=== PATIENT | male | born 1945 | race Caucasian/White ===

== ENCOUNTER 2021-11-05 20:31 | Inpatient (IN) | payer MEDICARE, SELFPAY ==
--- NOTE | ~2021-11-05 | US_ITS ---
EXAMINATION: US VENOUS ULTRASOUND WITH DOPPLER LOWER EXTREMITY, BILATERAL CLINICAL INFORMATION: Swollen feet COMPARISON: None TECHNIQUE: Ultrasound of the deep veins is performed from the hip to the calf with compression sonography and color and pulse Doppler assessment. Spectral analysis with color-flow imaging is performed. FINDINGS: RIGHT: There is normal venous compression and respiratory variation and augmented flow. The visualized common femoral vein, superficial femoral vein, profunda femoral vein, popliteal vein, and the trifurcation region shows no evidence of deep venous thrombosis. There is no significant popliteal fossa cyst. There is moderate calf edema. LEFT: There is normal venous compression and respiratory variation and augmented flow. The visualized common femoral vein, superficial femoral vein, profunda femoral vein, popliteal vein, and the trifurcation region shows no evidence of deep venous thrombosis. There is no significant popliteal fossa cyst. There is moderate calf edema. If the patient's symptoms persist, followup ultrasound in 5 days 7 days might be of value to exclude proximal propagation from a non-visualized calf vein. US/US venous duplex LE BI IMPRESSION: No DVT demonstrated in the bilateral lower extremity. Moderate bilateral calf edema.
--- NOTE | ~2021-11-05 | CT_ITS ---
EXAMINATION: CT HEAD WITHOUT CONTRAST CLINICAL INFORMATION: Change in mental status. COMPARISON: None TECHNIQUE: Contiguous axial imaging was performed from the skull base to vertex without intravenous administration of contrast. This CT examination was performed using dose optimization techniques as appropriate, variously including the following: *Automated exposure control *Adjustment of mA and/or kV according to patient size (this includes techniques or standardized protocols for targeted exams where dose is matched to indication/reason for exam; i.e. extremities or head) *Use of iterative reconstruction technique DLP: 727 mGy-cm FINDINGS: There is what may represent a 4.7 x 6.2 x 3.6 cm arachnoid cyst at the high left frontal vertex remodeling the overlying frontal calvarium which is thinned and attenuated. The underlying brain parenchyma is mildly distorted as well. There is encephalomalacia in the right parietal lobe along the mid convexity from a chronic-appearing infarct with ex vacuo dilatation of the body of the right lateral ventricle. Generalized parenchymal volume loss evident. There is no evidence of acute intracranial hemorrhage. No abnormal midline shift is seen. No imaging findings of hydrocephalus. The osseous structures and soft tissues are normal. The mastoid air cells and visualized portions of the paranasal sinuses are well aerated. CT/CT head/brain wo con IMPRESSION: Suspected 4.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 No midline shift of structures. 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 Generalized parenchymal volume loss and mild chronic white matter microangiopathy. No acute intracranial hemorrhage. If there is concern for a focal acute ischemic process, a follow-up MRI of the brain could be considered for further evaluation.
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
[2021-11-05] MEDS: Lithium Carbonate 300 MG TABLET 150 MG PO (22:01)
[2021-11-05] MEDS: Acetaminophen 325 MG TABLET 650 MG PO (22:01)
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
[2021-11-06 06:15] VITALS: BMI 22.4
[2021-11-06 07:05] VITALS: BP 135/73; PULSE 84; RESP 17; TEMP 36.7; O2SAT 99
[2021-11-06] MEDS: Aspirin 81 MG TAB.CHEW PO (08:50)
[2021-11-06] MEDS: Thiamine HCL 100 MG TABLET PO (08:50)
[2021-11-06] MEDS: Tamsulosin HCL 0.4 MG CAPSULE PO (08:50)
[2021-11-06] MEDS: Lithium Carbonate 300 MG CAPSULE PO (08:50)
[2021-11-06] MEDS: Atorvastatin Calcium 40 MG TABLET PO (08:51)
--- NOTE | 2021-11-06 10:12 | P.CONHOSP_ITS ---
History of Present Illness Data of Consult Service Date: 11/06/21 Primary Care Provider: Carlos Piña DO, MD HPI 76 year old male with Bipolar disorder, CKD, history of CVA, HTN, history of right renal mass discharged from [facility] 11/05/21 after admission for acute Psychosis and subsequently transfered to [facility]. No acute medical complaint at this time. Discharge Diagnosis at [facility] as follow: Bipolar disorder, current episode hypomanic (F31.0) Chronic kidney disease (N18.9) Contact dermatitis (L25.9) History of CVA in adulthood (Z86.73) Hypertension, uncontrolled (I10) Right renal mass (N28.89) Discharge Medications at [facility] on 11/05/21 Acetaminophen (acetaminophen 325 mg oral tablet) 650 Milligram By Mouth Every 4 hours as needed Temperature Greater than 100.5 Pain , Mild Aspirin (aspirin 81 mg oral delayed release tablet) 81 Milligram By Mouth Daily Calamine Topical 1 applicator Topically 4 times a day as needed Itch Docusate-Senna (Docusate/Senna Tablet) 1 tab(s) By Mouth 2 times a day as needed Constipation [place] (lithium 300 mg oral tablet) 1 tab(s) 300 Milligram By Mouth Daily [place] (lithium 150 mg oral capsule) 150 Milligram By Mouth Daily at bedtime Multivitamin With Minerals (Multivit Therapeutic/Minerals Tablet) 1 tab(s) By Mouth Daily Tamsulosin (Flomax 0.4 mg oral capsule) 0.4 Milligram By Mouth Daily Dispense: 30 capsule Thiamine (thiamine 100 mg oral tablet) 100 Milligram 1 tablet By Mouth Daily No chest pain, no SOB, no WATKINS Review of Systems Review of Systems: Gen: no fever Resp: no sob, no cough CV: no chest, no WATKINS, no leg edema GI: No n/v, no abd pain Neuro: No confusion Psych: trouble foccusing Yes all other systems are reviewed and are negative [facility] Medical History (Updated 11/06/21 @ 10:53 by Alex Galarza MD) Bipolar 1 disorder CKD (chronic kidney disease) Dementia with behavioral disturbance History of CVA (cerebrovascular accident) Right renal mass Social History Household Members: Spouse Housing: House Do you presently have visiting nurse or other home services: No Unable to assess alcohol history related to: Unable to respond Patient Tobacco Use Status: Never used Tobacco Use of substances other than those prescribed or required for medical reasons: Unable to respond Substance Use Type: Marijuana Substance Use Frequency: Occasionally Last Used Substance: Unknown Currently Displaying Signs/Symptoms of Drug Intoxication Withdrawal: No Any prior treatment program specific to substance use: No Have you been hit, kicked, punched, or otherwise hurt by someone within the past year? If so, by whom?: No Do you feel safe in your current relationship?: Yes Is there a partner from a previous relationship who is making you feel unsafe now?: No Are you made to feel afraid or neglected: No Advance Directives: No Do you have thoughts of harming others: None Do you have a plan to hurt others: No Plan Recently lost weight without trying: No How much weight loss: Not applicable Eating poorly because of decreased appetite: No Nutrition screen score: 0 Nutrition Risks: No Nutritional Risk Meds Allergies Allergy/AdvReac Type Severity Reaction Status Date / Time No Known Allergies Allergy Verified 11/05/21 21:04 Active Medications: Current Medications Acetaminophen (Acetaminophen 325 Mg Tablet) 650 mg PO Q6H PRN PRN Reason: Headache/Pain Mild Scale (1-3) Last Admin: 11/05/21 22:01 Dose: 650 mg Al Hydroxide/Mg Hydroxide (Magnesium Hydrox/Alum Hydrox 30 Ml Oral.Susp) 30 ml PO Q6H PRN PRN Reason: Heartburn/Nausea Aspirin (Aspirin 81 Mg Tab.Chew) 81 mg PO DAILY [facility] Last Admin: 11/06/21 08:50 Dose: 81 mg Atorvastatin Calcium (Atorvastatin Calcium 40 Mg Tablet) 40 mg PO DAILY [facility] Last Admin: 11/06/21 08:51 Dose: 40 mg Calamine (Calamine/Zinc Oxide Lotion 177 Ml Bottle) 1 appl TOPICAL QID PRN PRN Reason: poison kailee Guaifenesin/Dextromethorphan (Guaifenesin Dm 100/10/5 Ml 5 Ml Syrup) 5 ml PO Q4H PRN PRN Reason: cough, congestion Hydroxyzine HCl (Hydroxyzine Hcl 25 Mg Tablet) 25 mg PO BEDTIME PRN PRN Reason: Anxiety [place] Carbonate ([place] Carbonate 300 Mg Capsule) 300 mg PO DAILY [facility] Last Admin: 11/06/21 08:50 Dose: 300 mg [place] Carbonate ([place] Carbonate 300 Mg Tablet) 150 mg PO BEDTIME [facility] Last Admin: 11/05/21 22:01 Dose: 150 mg Magnesium Hydroxide (Milk Of Magnesia 30 Ml Oral.Susp) 30 ml PO DAILY PRN PRN Reason: Constipation Melatonin (Melatonin 3 Mg Tablet) 3 mg PO BEDTIME PRN PRN Reason: insomnia Olanzapine (Olanzapine 5 Mg Tablet) 5 mg PO BID PRN PRN Reason: agitation, anxiety Polyethylene Glycol (Polyethylene Glycol 3350 17 Gm Powd.Pack) 17 gm PO DAILY PRN PRN Reason: constipation Senna (Sennosides 8.6 Mg Tablet) 8.6 mg PO BID PRN PRN Reason: constipation Simethicone (Simethicone 80 Mg Tab.Chew) 80 mg PO TID PRN PRN Reason: gas Tamsulosin HCl (Tamsulosin Hcl 0.4 Mg Capsule) 0.4 mg PO DAILY [facility] Last Admin: 11/06/21 08:50 Dose: 0.4 mg Thiamine HCl (Thiamine Hcl 100 Mg Tablet) 100 mg PO DAILY [facility] Last Admin: 11/06/21 08:50 Dose: 100 mg Trazodone HCl (Trazodone Hcl 50 Mg Tablet) 50 mg PO BEDTIME PRN PRN Reason: Insomnia Physical Exam Vital Signs and Narrative: Vital Signs: Last Vital Signs Temp 98.1 F 11/06/21 07:05 Pulse 84 11/06/21 07:05 Resp 17 11/06/21 07:05 BP 135/73 11/06/21 07:05 Pulse Ox 99 11/06/21 07:05 O2 Del Method 11/06/21 07:05 BMI result Body Mass Index 22.4 Const: Other: Constitutional: Alert, in no distress Mental Status: Oriented to person, place and time. Eyes: Pupils are equal, round and reactive to light. Ear, Nose and Throat: Oropharynx clear, mucous membranes moist. Ears and nose without eformities. Trachea midline. Respiratory: Clear to auscultation. No wheezing, rales or rhonchi. Cardiovascular: S1 S2 regular. No murmurs, rubs or gallops. Gastrointestinal: Abdomen soft, non-tender, non-distended. Normal bowel sounds.? Neurologic: Cranial nerves II-XII grossly intact. No focal neurological deficits. Moves all extremities spontaneously.? Skin: No rashes or lesions.? Musculoskeletal: No cyanosis or clubbing. Psychiatric: thought was a bit desorganized Assessment and Plan (1) Dementia with behavioral disturbance: (2) Bipolar 1 disorder: Plan Patient admitted for acute Psychosis, presently with no acute medical issues. Please continue ongoing Psychiatric, should ECT be indicated, he will need no additioanl cardiopulmonary testing but suggest ECG before ECT
[2021-11-06 10:20] LABS: Estimated Average Glucose 108 mg/dL; Hemoglobin A1c % 5.4 %
[2021-11-06 10:29] LABS: Cholesterol 163 mg/dL; HDL Cholesterol 38 mg/dL; LDL Cholesterol Calculated 103 mg/dl; Magnesium 2.4 mg/dL (1.6-2.6); Triglycerides 111 mg/dL
[2021-11-06 10:49] LABS: Free T4 (Free Thyroxine) 0.98 ng/dL (0.71-1.85); Thyroid Stimulating Hormone 0.93 uIU/mL (0.32-4.0)
[2021-11-06 11:03] LABS: Folate 8.9 ng/mL (> or = 4.0); Vitamin B12 299 pg/mL (200-900)
--- NOTE | 2021-11-06 12:48 | P.PNPSI_ITS ---
Subjective Subjective Date of Service: 11/06/21 Reason For Visit: Bipolar I D/O Current or most recent episode hypom Subjective Notes: Conditional Voluntary Interim History: The nursing staff reported that the patient has been compliant with treatment, he looks confused and delusional at times but easily redirectable. On interview the patient was aware that he was in the hospital and he asked about discharge planning. I explained that we need to get collateral information and continue with treatment. He is aware that he will have blood work next Tuesday. Mental Status Exam Mental Status Exam Patient Appearance: Appropriate Patient Orientation: Person, Place and Situation Level of Consciousness: Restless Patient Behavior: Guarded and Passive Mood Description: Withdrawn Affect Description: Withdrawn Patient Cognition Impaired: Yes Ability to Follow Directions: Fair Speech Pattern: Clear Hallucinations: None and Auditory Delusions: Paranoid Ideation and Grandiose Thought Process: Illogical and Distracted Thought Content: positive for [place] Judgement: Poor Diagnostics Vital Signs (24Hr): Vital Signs - 24 hr 11/06/21 07:05 Temperature 98.1 F Pulse Rate 84 Respiratory Rate 17 Blood Pressure 135/73 Pulse Oximetry 99 Oxygen Delivery Method Room Air BMI result Body Mass Index 22.4 Labs Labs: Laboratory Results - last 48 hr 11/06/21 11/06/21 11/06/21 09:49 09:49 09:49 Estimat Average Glucose 108 Hemoglobin A1c % 5.4 Magnesium 2.4 Triglycerides 111 Cholesterol 163 LDL Cholesterol, Calc 103 HDL Cholesterol 38 Vitamin B12 299 Folate 8.9 TSH 0.93 Free T4 0.98 Medications Medications Current Medications Acetaminophen (Acetaminophen 325 Mg Tablet) 650 mg PO Q6H PRN PRN Reason: Headache/Pain Mild Scale (1-3) Last Admin: 11/05/21 22:01 Dose: 650 mg Al Hydroxide/Mg Hydroxide (Magnesium Hydrox/Alum Hydrox 30 Ml Oral.Susp) 30 ml PO Q6H PRN PRN Reason: Heartburn/Nausea Aspirin (Aspirin 81 Mg Tab.Chew) 81 mg PO DAILY [facility] Last Admin: 11/06/21 08:50 Dose: 81 mg Atorvastatin Calcium (Atorvastatin Calcium 40 Mg Tablet) 40 mg PO DAILY [facility] Last Admin: 11/06/21 08:51 Dose: 40 mg Calamine (Calamine/Zinc Oxide Lotion 177 Ml Bottle) 1 appl TOPICAL QID PRN PRN Reason: poison kailee Guaifenesin/Dextromethorphan (Guaifenesin Dm 100/10/5 Ml 5 Ml Syrup) 5 ml PO Q4H PRN PRN Reason: cough, congestion Hydroxyzine HCl (Hydroxyzine Hcl 25 Mg Tablet) 25 mg PO BEDTIME PRN PRN Reason: Anxiety [place] Carbonate ([place] Carbonate 300 Mg Capsule) 300 mg PO DAILY [facility] Last Admin: 11/06/21 08:50 Dose: 300 mg [place] Carbonate ([place] Carbonate 300 Mg Tablet) 150 mg PO BEDTIME [facility] Last Admin: 11/05/21 22:01 Dose: 150 mg Magnesium Hydroxide (Milk Of Magnesia 30 Ml Oral.Susp) 30 ml PO DAILY PRN PRN Reason: Constipation Melatonin (Melatonin 3 Mg Tablet) 3 mg PO BEDTIME PRN PRN Reason: insomnia Olanzapine (Olanzapine 5 Mg Tablet) 5 mg PO BID PRN PRN Reason: agitation, anxiety Polyethylene Glycol (Polyethylene Glycol 3350 17 Gm Powd.Pack) 17 gm PO DAILY PRN PRN Reason: constipation Senna (Sennosides 8.6 Mg Tablet) 8.6 mg PO BID PRN PRN Reason: constipation Simethicone (Simethicone 80 Mg Tab.Chew) 80 mg PO TID PRN PRN Reason: gas Tamsulosin HCl (Tamsulosin Hcl 0.4 Mg Capsule) 0.4 mg PO DAILY [facility] Last Admin: 11/06/21 08:50 Dose: 0.4 mg Thiamine HCl (Thiamine Hcl 100 Mg Tablet) 100 mg PO DAILY [facility] Last Admin: 11/06/21 08:50 Dose: 100 mg Trazodone HCl (Trazodone Hcl 50 Mg Tablet) 50 mg PO BEDTIME PRN PRN Reason: Insomnia Allergies Allergies Allergy/AdvReac Type Severity Reaction Status Date / Time No Known Allergies Allergy Verified 11/05/21 21:04 Assessment & Plan Assessment & Plan (1) Dementia with behavioral disturbance: Code(s): F03.91 - Unspecified dementia with behavioral disturbance (2) Bipolar 1 disorder: Code(s): F31.9 - Bipolar disorder, unspecified Plan Patient admitted for acute Psychosis, presently with no acute medical issues. Please continue ongoing Psychiatric, should ECT be indicated, he will need no additioanl cardiopulmonary testing but suggest ECG before ECT Plan 1. Gather collateral information. In a 2. Continue with current treatment. 3. For Tuesday morning lithium level basic metabolic panel CBC, TSH another regular blood work. 4. Start a low dose of Zyprexa 2.5 mg p.o. q.h.s. to target mood lability I spent __30____ minutes with the patient and/or on the patient floor today, greater than?50% of which was spent counseling/coordinating care. Reason for contiued inpatient stay Substantial Risk for: inability to function, rapid decompensation and med/psych decompensation
[2021-11-06 18:00] VITALS: BP 120/58; PULSE 85; RESP 20; TEMP 36.6; O2SAT 98
[2021-11-06] MEDS: Lithium Carbonate 300 MG TABLET 150 MG PO (20:36)
[2021-11-06] MEDS: OLANZapine 2.5 MG TABLET PO (20:36)
[2021-11-06] MEDS: traZODone HCL 50 MG TABLET PO (23:05)
[2021-11-07] MEDS: traZODone HCL 50 MG TABLET PO ×2 (01:03→20:21)
[2021-11-07 07:05] VITALS: BP 134/75; PULSE 83; RESP 18; TEMP 36.2; O2SAT 98
[2021-11-07] MEDS: Lithium Carbonate 300 MG CAPSULE PO (09:32)
[2021-11-07] MEDS: Thiamine HCL 100 MG TABLET PO (09:32)
[2021-11-07] MEDS: Atorvastatin Calcium 40 MG TABLET PO (09:32)
[2021-11-07] MEDS: Tamsulosin HCL 0.4 MG CAPSULE PO (09:32)
[2021-11-07] MEDS: Aspirin 81 MG TAB.CHEW PO (09:32)
[2021-11-07] MEDS: OLANZapine 5 MG TABLET PO (16:51)
--- NOTE | 2021-11-07 17:33 | HO.PSYCHPN ---
Subjective Subjective Date of Service: 11/07/21 Reason For Visit: Bipolar I D/O Current or most recent episode hypom Interim History: as per staff patient has not been sleeping it disinhibited and sexually preoccupied. With marketing writer presents is friendly, but illogical. Was aware he was in hospital and the father's Day was coming around soon. However believe that it had already passed and then had difficulty naming the hospital he was in. Reports he is here because his is worried about him but he had no idea why she would be concern. Reported feeling safe on the unit. Denied any sleep issues. Denied depression. No evidence of SI or HI. No overt psychosis noted. Regarding medications reports being back on lithium and feels this is positive. Medication Compliance: Yes Side effects from medications: No Attending Groups: Intermittent Review of Systems Acute medical concerns: No Review of Systems Review of Systems Unremarkable Mental Status Exam Mental Status Exam Narrative: hospital clothing. For self-care. Pressured speech. Some difficulty with memory and orientation. Does appear elated. No SI or HI noted. Seems less paranoid today. Does appear to have some internal preoccupation. Insight and judgment limited Diagnostics Vital Signs (24Hr): Vital Signs - 24 hr 11/06/21 18:00 11/07/21 07:05 Temperature 98 F 97.2 F Pulse Rate 85 83 Respiratory Rate 20 18 Blood Pressure 120/58 L 134/75 Pulse Oximetry 98 98 Oxygen Delivery Method Room Air Room Air BMI result Body Mass Index 22.4 Labs Labs: Laboratory Results - last 48 hr 11/06/21 11/06/21 11/06/21 09:49 09:49 09:49 Estimat Average Glucose 108 Hemoglobin A1c % 5.4 Magnesium 2.4 Triglycerides 111 Cholesterol 163 LDL Cholesterol, Calc 103 HDL Cholesterol 38 Vitamin B12 299 Folate 8.9 TSH 0.93 Free T4 0.98 Medications Medications Current Medications Acetaminophen (Acetaminophen 325 Mg Tablet) 650 mg PO Q6H PRN PRN Reason: Headache/Pain Mild Scale (1-3) Last Admin: 11/05/21 22:01 Dose: 650 mg Al Hydroxide/Mg Hydroxide (Magnesium Hydrox/Alum Hydrox 30 Ml Oral.Susp) 30 ml PO Q6H PRN PRN Reason: Heartburn/Nausea Aspirin (Aspirin 81 Mg Tab.Chew) 81 mg PO DAILY [facility] Last Admin: 11/07/21 09:32 Dose: 81 mg Atorvastatin Calcium (Atorvastatin Calcium 40 Mg Tablet) 40 mg PO DAILY [facility] Last Admin: 11/07/21 09:32 Dose: 40 mg Calamine (Calamine/Zinc Oxide Lotion 177 Ml Bottle) 1 appl TOPICAL QID PRN PRN Reason: poison kailee Guaifenesin/Dextromethorphan (Guaifenesin Dm 100/10/5 Ml 5 Ml Syrup) 5 ml PO Q4H PRN PRN Reason: cough, congestion Hydroxyzine HCl (Hydroxyzine Hcl 25 Mg Tablet) 25 mg PO BEDTIME PRN PRN Reason: Anxiety Grenelefe Carbonate (Grenelefe Carbonate 300 Mg Capsule) 300 mg PO DAILY [facility] Last Admin: 11/07/21 09:32 Dose: 300 mg Grenelefe Carbonate (Grenelefe Carbonate 300 Mg Tablet) 150 mg PO BEDTIME [facility] Last Admin: 11/06/21 20:36 Dose: 150 mg Magnesium Hydroxide (Milk Of Magnesia 30 Ml Oral.Susp) 30 ml PO DAILY PRN PRN Reason: Constipation Melatonin (Melatonin 3 Mg Tablet) 3 mg PO BEDTIME PRN PRN Reason: insomnia Olanzapine (Olanzapine 5 Mg Tablet) 5 mg PO BID PRN PRN Reason: agitation, anxiety Last Admin: 11/07/21 16:51 Dose: 5 mg Olanzapine (Olanzapine 2.5 Mg Tablet) 2.5 mg PO BEDTIME [facility] Last Admin: 11/06/21 20:36 Dose: 2.5 mg Polyethylene Glycol (Polyethylene Glycol 3350 17 Gm Powd.Pack) 17 gm PO DAILY PRN PRN Reason: constipation Senna (Sennosides 8.6 Mg Tablet) 8.6 mg PO BID PRN PRN Reason: constipation Simethicone (Simethicone 80 Mg Tab.Chew) 80 mg PO TID PRN PRN Reason: gas Tamsulosin HCl (Tamsulosin Hcl 0.4 Mg Capsule) 0.4 mg PO DAILY [facility] Last Admin: 11/07/21 09:32 Dose: 0.4 mg Thiamine HCl (Thiamine Hcl 100 Mg Tablet) 100 mg PO DAILY [facility] Last Admin: 11/07/21 09:32 Dose: 100 mg Trazodone HCl (Trazodone Hcl 50 Mg Tablet) 50 mg PO BEDTIME PRN PRN Reason: Insomnia Last Admin: 11/07/21 01:03 Dose: 50 mg Allergies Allergies Allergy/AdvReac Type Severity Reaction Status Date / Time No Known Allergies Allergy Verified 11/05/21 21:04 Assessment & Plan Assessment & Plan (1) Dementia with behavioral disturbance: Code(s): F03.91 - Unspecified dementia with behavioral disturbance (2) Bipolar 1 disorder: Code(s): F31.9 - Bipolar disorder, unspecified Plan Patient admitted for acute Psychosis, presently with no acute medical issues. Please continue ongoing Psychiatric, should ECT be indicated, he will need no additioanl cardiopulmonary testing but suggest ECG before ECT Plan 1. Gather collateral information. In a 2. Continue with current treatment. 3. For Tuesday morning lithium level basic metabolic panel CBC, TSH another regular blood work. 4. Start a low dose of Zyprexa 2.5 mg p.o. q.h.s. to target mood lability 11/07/2021: No changes to team's primary treatment plan I spent minutes with the patient and/or on the patient floor today, greater than?50% of which was spent counseling/coordinating care. Reason for contiued inpatient stay Substantial Risk for: inability to function
[2021-11-07 18:00] VITALS: BP 132/73; PULSE 84; RESP 20; TEMP 36.8; O2SAT 99
[2021-11-07] MEDS: OLANZapine 2.5 MG TABLET PO (20:20)
[2021-11-07] MEDS: Lithium Carbonate 300 MG TABLET 150 MG PO (20:21)
[2021-11-07] MEDS: Acetaminophen 325 MG TABLET 650 MG PO (22:06)
[2021-11-07] MEDS: Melatonin 3 MG TABLET PO (23:13)
[2021-11-08 07:05] VITALS: BP 130/65; PULSE 72; RESP 17; TEMP 36.2; O2SAT 98
[2021-11-08] MEDS: Aspirin 81 MG TAB.CHEW PO (08:09)
[2021-11-08] MEDS: Atorvastatin Calcium 40 MG TABLET PO (08:09)
[2021-11-08] MEDS: Tamsulosin HCL 0.4 MG CAPSULE PO (08:09)
[2021-11-08] MEDS: Lithium Carbonate 300 MG CAPSULE PO (08:09)
[2021-11-08] MEDS: Thiamine HCL 100 MG TABLET PO (08:09)
[2021-11-08] MEDS: OLANZapine 5 MG TABLET PO ×2 (08:09→20:18)
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
[2021-11-08 18:00] VITALS: BP 123/62; PULSE 76; RESP 16; TEMP 37.3; O2SAT 100
[2021-11-08] MEDS: Lithium Carbonate 300 MG TABLET 150 MG PO (20:16)
[2021-11-08] MEDS: Acetaminophen 325 MG TABLET 650 MG PO (20:17)
[2021-11-08] MEDS: Melatonin 3 MG TABLET PO (20:19)
[2021-11-09 07:19] LABS: MANUAL DIFF FLAG NO
[2021-11-09 07:26] LABS: Basophils Absolute Auto 0.1 X10*3/uL (0.0-0.2); Basophils Percent Auto 0.8 % (0-2); Eosinophils Absolute Auto 0.6 X10*3/uL (0.0-0.4); Eosinophils Percent Auto 9.5 % (0-4); Hematocrit 33.4 % (42.0-52.0); Hemoglobin 10.5 g/dl (14.0-18.0); Imm Gran Abs Auto 0.02 X10*3/uL (0.00-0.03); Imm Gran Pct Auto 0.3 % (0.0-0.4); Lymphocytes Absolute Auto 1.2 X10*3/uL (1.2-4.9); Lymphocytes Percent Auto 18.7 % (20-40); Mean Corpuscular HGB Conc 31.4 g/dl (31.0-36.0); Mean Corpuscular Hemoglobin 27.5 pg (27.0-33.0); Mean Corpuscular Volume 87.4 fL (80.0-98.0); Mean Platelet Volume 9.5 fL (9.4-12.4); Monocytes Absolute Auto 0.5 X10*3/uL (0.1-1.2); Monocytes Percent Auto 8.2 % (2-11); Neutrophils Percent Auto 62.5 % (45-73); Platelet Count 252 X10*3/uL (160-400); Red Blood Count 3.82 X10*6/uL (4.60-5.80); Red Cell Distribution Width 12.8 % (11.0-16.0); White Blood Count 6.3 X10*3/uL (4.8-10.8)
[2021-11-09 07:38] LABS: Alanine Aminotransferase 19 U/L (0-40); Albumin Level 4.3 g/dL (3.5-5.0); Alkaline Phosphatase 59 U/L (39-117); Anion Gap 11 (12-20); Aspartate Amino Transferase 26 U/L (5-37); Bilirubin Direct 0.2 mg/dL (0.0-0.5); Bilirubin Total 0.5 mg/dL (0.0-1.0); Blood Urea Nitrogen 35 mg/dL (9-16); Calcium 9.3 mg/dL (8.4-10.2); Carbon Dioxide 25 mmol/L (22-29); Chloride 111 mmol/L (96-108); Cholesterol 140 mg/dL; Creatinine Clr Calc Pharmacy 36.5; Estimated Glomerular Filt Rate 37; Glucose Random 97 mg/dL (60-115); HDL Cholesterol 40 mg/dL; LDL Cholesterol Calculated 86 mg/dl; Potassium 4.5 mmol/L (3.3-5.1); Sodium 142 mmol/L (135-145); Total Protein 7.2 g/dL (6.5-8.0); Triglycerides 74 mg/dL
[2021-11-09 07:45] VITALS: BP 147/72; PULSE 72; RESP 18; TEMP 36.6; O2SAT 98
[2021-11-09 07:58] LABS: Thyroid Stimulating Hormone 0.85 uIU/mL (0.32-4.0)
[2021-11-09 08:21] LABS: Estimated Average Glucose 114 mg/dL; Hemoglobin A1c % 5.6 %
[2021-11-09] MEDS: Atorvastatin Calcium 40 MG TABLET PO (08:42)
[2021-11-09] MEDS: Tamsulosin HCL 0.4 MG CAPSULE PO (08:42)
[2021-11-09] MEDS: Aspirin 81 MG TAB.CHEW PO (08:42)
[2021-11-09] MEDS: Lithium Carbonate 300 MG CAPSULE PO (08:42)
[2021-11-09] MEDS: Thiamine HCL 100 MG TABLET PO (08:42)
[2021-11-09] MEDS: Calamine/Zinc Oxide LOTION 177 ML BOTTLE 1 APPL TOPICAL (13:46)
--- NOTE | 2021-11-09 16:44 | HO.PSYCHPN ---
Subjective Subjective Date of Service: 11/09/21 Reason For Visit: Bipolar I D/O Current or most recent episode hypom Subjective Notes: Conditional Voluntary Interim History: The nursing staff reported the patient has been compliant with treatment, he was seen participating a few groups. On interview the patient denies new symptoms he looks pleasantly confused at times. No side effects with the addition of Zyprexa. Over the weekend the Zyprexa was increased up to 5 mg p.o. q.h.s. Mental Status Exam Mental Status Exam Patient Appearance: Well Grooomed Patient Orientation: Person and Situation Level of Consciousness: Awake Patient Behavior: Guarded and Cooperative Mood Description: Labile Affect Description: Withdrawn Ability to Follow Directions: Fair Speech Pattern: Clear Hallucinations: None Delusions: Not Present Thought Process: Distracted Thought Content: positive for Poverty of Content Judgement: Fair Diagnostics Vital Signs (24Hr): Vital Signs - 24 hr 11/08/21 18:00 11/09/21 07:45 Temperature 99.1 F 97.8 F Pulse Rate 76 72 Respiratory Rate 16 18 Blood Pressure 123/62 147/72 H Pulse Oximetry 100 98 Oxygen Delivery Method Room Air Room Air BMI result Body Mass Index 22.4 Labs Results: 11/09/21 06:54 11/09/21 06:54 Labs: Laboratory Results - last 48 hr 11/09/21 11/09/21 11/09/21 06:54 06:54 06:55 WBC 6.3 RBC 3.82 L Hgb 10.5 L Hct 33.4 L MCV 87.4 MCH 27.5 MCHC 31.4 RDW 12.8 Plt Count 252 MPV 9.5 Immature Gran % (Auto) 0.3 Neut % (Auto) 62.5 Lymph % (Auto) 18.7 L [place] % (Auto) 8.2 Eos % (Auto) 9.5 H Baso % (Auto) 0.8 Lymph # (Auto) 1.2 [place] # (Auto) 0.5 Eos # (Auto) 0.6 H Baso # (Auto) 0.1 Abs Immat Gran (auto) 0.02 Absolute Neuts (auto) 4.0 Absolute Nucleated RBC 0.000 Nucleated RBC % (auto) 0.0 Sodium 142 Potassium 4.5 Chloride 111 H Carbon Dioxide 25 Anion Gap 11 L BUN 35 H Creatinine 1.78 H Estim Creat Clear Calc 36.5 Estimated GFR 37 Random Glucose 97 Estimat Average Glucose 114 Hemoglobin A1c % 5.6 Calcium 9.3 Total Bilirubin 0.5 Direct Bilirubin 0.2 AST 26 ALT 19 Alkaline Phosphatase 59 Total Protein 7.2 Albumin 4.3 Triglycerides 74 Cholesterol 140 LDL Cholesterol, Calc 86 HDL Cholesterol 40 TSH 0.85 Medications Medications Current Medications Acetaminophen (Acetaminophen 325 Mg Tablet) 650 mg PO Q6H PRN PRN Reason: Headache/Pain Mild Scale (1-3) Last Admin: 11/08/21 20:17 Dose: 650 mg Al Hydroxide/Mg Hydroxide (Magnesium Hydrox/Alum Hydrox 30 Ml Oral.Susp) 30 ml PO Q6H PRN PRN Reason: Heartburn/Nausea Aspirin (Aspirin 81 Mg Tab.Chew) 81 mg PO DAILY [facility] Last Admin: 11/09/21 08:42 Dose: 81 mg Atorvastatin Calcium (Atorvastatin Calcium 40 Mg Tablet) 40 mg PO DAILY [facility] Last Admin: 11/09/21 08:42 Dose: 40 mg Calamine (Calamine/Zinc Oxide Lotion 177 Ml Bottle) 1 appl TOPICAL QID PRN PRN Reason: poison kailee Last Admin: 11/09/21 13:46 Dose: 1 appl Guaifenesin/Dextromethorphan (Guaifenesin Dm 100/10/5 Ml 5 Ml Syrup) 5 ml PO Q4H PRN PRN Reason: cough, congestion Hydroxyzine HCl (Hydroxyzine Hcl 25 Mg Tablet) 25 mg PO BEDTIME PRN PRN Reason: Anxiety [place] Carbonate ([place] Carbonate 300 Mg Capsule) 300 mg PO DAILY [facility] Last Admin: 11/09/21 08:42 Dose: 300 mg [place] Carbonate ([place] Carbonate 300 Mg Tablet) 150 mg PO BEDTIME [facility] Last Admin: 11/08/21 20:16 Dose: 150 mg Magnesium Hydroxide (Milk Of Magnesia 30 Ml Oral.Susp) 30 ml PO DAILY PRN PRN Reason: Constipation Melatonin (Melatonin 3 Mg Tablet) 3 mg PO BEDTIME PRN PRN Reason: insomnia Last Admin: 11/08/21 20:19 Dose: 3 mg Olanzapine (Olanzapine 5 Mg Tablet) 5 mg PO BID PRN PRN Reason: agitation, anxiety Last Admin: 11/08/21 08:09 Dose: 5 mg Olanzapine (Olanzapine 5 Mg Tablet) 5 mg PO BEDTIME [facility] Last Admin: 11/08/21 20:18 Dose: 5 mg Polyethylene Glycol (Polyethylene Glycol 3350 17 Gm Powd.Pack) 17 gm PO DAILY PRN PRN Reason: constipation Senna (Sennosides 8.6 Mg Tablet) 8.6 mg PO BID PRN PRN Reason: constipation Simethicone (Simethicone 80 Mg Tab.Chew) 80 mg PO TID PRN PRN Reason: gas Tamsulosin HCl (Tamsulosin Hcl 0.4 Mg Capsule) 0.4 mg PO DAILY [facility] Last Admin: 11/09/21 08:42 Dose: 0.4 mg Thiamine HCl (Thiamine Hcl 100 Mg Tablet) 100 mg PO DAILY [facility] Last Admin: 11/09/21 08:42 Dose: 100 mg Trazodone HCl (Trazodone Hcl 50 Mg Tablet) 50 mg PO BEDTIME PRN PRN Reason: Insomnia Last Admin: 11/07/21 20:21 Dose: 50 mg Allergies Allergies Allergy/AdvReac Type Severity Reaction Status Date / Time No Known Allergies Allergy Verified 11/05/21 21:04 Assessment & Plan Assessment & Plan (1) Dementia with behavioral disturbance: Code(s): F03.91 - Unspecified dementia with behavioral disturbance (2) Bipolar 1 disorder: Code(s): F31.9 - Bipolar disorder, unspecified Plan Patient admitted for acute Psychosis, presently with no acute medical issues. Please continue ongoing Psychiatric, should ECT be indicated, he will need no additioanl cardiopulmonary testing but suggest ECG before ECT Plan 1. Gather collateral information. In a 2. Continue with current treatment. 3. For Tuesday morning lithium level basic metabolic panel CBC, TSH another regular blood work. 4. Keep [place], Zyprexa and others I spent minutes with the patient and/or on the patient floor today, greater than?50% of which was spent counseling/coordinating care. Reason for contiued inpatient stay Substantial Risk for: inability to function, rapid decompensation and med/psych decompensation
[2021-11-09 17:29] LABS: Lithium 0.66 mmol/L (0.60-1.20)
[2021-11-09 20:30] VITALS: BP 150/69; PULSE 61; RESP 18; TEMP 36.8; O2SAT 97
[2021-11-09] MEDS: Lithium Carbonate 300 MG TABLET 150 MG PO (20:35)
[2021-11-09] MEDS: OLANZapine 5 MG TABLET PO (20:35)
[2021-11-10] MEDS: Melatonin 3 MG TABLET PO (00:26)
[2021-11-10] MEDS: Acetaminophen 325 MG TABLET 650 MG PO (00:26)
[2021-11-10 07:34] LABS: Lithium 0.59 mmol/L (0.60-1.20)
[2021-11-10 07:50] VITALS: BP 119/59; PULSE 71; RESP 17; TEMP 36.6; O2SAT 95
[2021-11-10] MEDS: Tamsulosin HCL 0.4 MG CAPSULE PO (08:24)
[2021-11-10] MEDS: Aspirin 81 MG TAB.CHEW PO (08:24)
[2021-11-10] MEDS: Atorvastatin Calcium 40 MG TABLET PO (08:24)
[2021-11-10] MEDS: Lithium Carbonate 300 MG CAPSULE PO (08:24)
[2021-11-10] MEDS: Thiamine HCL 100 MG TABLET PO (08:24)
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
[2021-11-10 18:00] VITALS: BP 119/71; PULSE 85; TEMP 36.5; O2SAT 97
[2021-11-10] MEDS: Lithium Carbonate 300 MG TABLET 150 MG PO (21:18)
[2021-11-10] MEDS: OLANZapine 5 MG TABLET PO (21:18)
[2021-11-11 08:15] VITALS: BP 147/75; PULSE 83; RESP 18; TEMP 37.2; O2SAT 97
[2021-11-11] MEDS: Tamsulosin HCL 0.4 MG CAPSULE PO (09:20)
[2021-11-11] MEDS: Atorvastatin Calcium 40 MG TABLET PO (09:20)
[2021-11-11] MEDS: Aspirin 81 MG TAB.CHEW PO (09:20)
[2021-11-11] MEDS: Thiamine HCL 100 MG TABLET PO (09:21)
[2021-11-11] MEDS: Lithium Carbonate 300 MG CAPSULE PO (09:46)
--- NOTE | 2021-11-11 12:54 | PC.NURSE ---
[facility] cognitive assessment administered this date. Environment modified to decrease auditory and visual distraction for most objective outcome. Pts score 11/30 indicates moderate neurocognitive deficit. Pts attending MD, nurse, social insurance adviser, and OTR notified of pt result.
--- NOTE | 2021-11-11 14:00 | HO.PSYCHPN ---
Subjective Subjective Date of Service: 11/11/21 Reason For Visit: Bipolar I D/O Current or most recent episode hypom Subjective Notes: Conditional Voluntary Interim History: The nursing staff reported the patient has been count, less sexually inappropriate. He woke up very early and he was exercising doing yoga poses in the morning. We did a [place] test and his core . We discussed with the patient and he agreed to have a CT scan of the head to continue with the regular workout and a new lithium level for Tuesday. Mental Status Exam Mental Status Exam Patient Appearance: Well Grooomed Patient Orientation: Person and Situation Level of Consciousness: Awake Patient Behavior: Cooperative Mood Description: Constricted Affect Description: Calm Patient Cognition Impaired: Yes Ability to Follow Directions: Good Speech Pattern: Clear Hallucinations: None Delusions: Not Present Thought Content: positive for [place] Judgement: Fair Diagnostics Vital Signs (24Hr): Vital Signs - 24 hr 11/10/21 18:00 11/11/21 08:15 Temperature 97.7 F 98.9 F Pulse Rate 85 83 Respiratory Rate 18 Blood Pressure 119/71 147/75 H Pulse Oximetry 97 97 Oxygen Delivery Method Room Air Room Air BMI result Body Mass Index 22.4 Labs Results: 11/09/21 06:54 11/09/21 06:54 Labs: Laboratory Results - last 48 hr 11/09/21 11/10/21 16:55 07:16 [place] 0.66 0.59 L Medications Medications Current Medications Acetaminophen (Acetaminophen 325 Mg Tablet) 650 mg PO Q6H PRN PRN Reason: Headache/Pain Mild Scale (1-3) Last Admin: 11/10/21 00:26 Dose: 650 mg Al Hydroxide/Mg Hydroxide (Magnesium Hydrox/Alum Hydrox 30 Ml Oral.Susp) 30 ml PO Q6H PRN PRN Reason: Heartburn/Nausea Aspirin (Aspirin 81 Mg Tab.Chew) 81 mg PO DAILY [facility] Last Admin: 11/11/21 09:20 Dose: 81 mg Atorvastatin Calcium (Atorvastatin Calcium 40 Mg Tablet) 40 mg PO DAILY [facility] Last Admin: 11/11/21 09:20 Dose: 40 mg Calamine (Calamine/Zinc Oxide Lotion 177 Ml Bottle) 1 appl TOPICAL QID PRN PRN Reason: poison kailee Last Admin: 11/09/21 13:46 Dose: 1 appl Guaifenesin/Dextromethorphan (Guaifenesin Dm 100/10/5 Ml 5 Ml Syrup) 5 ml PO Q4H PRN PRN Reason: cough, congestion Hydroxyzine HCl (Hydroxyzine Hcl 25 Mg Tablet) 25 mg PO BEDTIME PRN PRN Reason: Anxiety [place] Carbonate ([place] Carbonate 300 Mg Capsule) 300 mg PO DAILY [facility] Last Admin: 11/11/21 09:46 Dose: 300 mg [place] Carbonate ([place] Carbonate 300 Mg Tablet) 150 mg PO BEDTIME [facility] Last Admin: 11/10/21 21:18 Dose: 150 mg Magnesium Hydroxide (Milk Of Magnesia 30 Ml Oral.Susp) 30 ml PO DAILY PRN PRN Reason: Constipation Melatonin (Melatonin 3 Mg Tablet) 3 mg PO BEDTIME PRN PRN Reason: insomnia Last Admin: 11/10/21 00:26 Dose: 3 mg Olanzapine (Olanzapine 5 Mg Tablet) 5 mg PO BID PRN PRN Reason: agitation, anxiety Last Admin: 11/08/21 08:09 Dose: 5 mg Olanzapine (Olanzapine 5 Mg Tablet) 5 mg PO BEDTIME [facility] Last Admin: 11/10/21 21:18 Dose: 5 mg Polyethylene Glycol (Polyethylene Glycol 3350 17 Gm Powd.Pack) 17 gm PO DAILY PRN PRN Reason: constipation Senna (Sennosides 8.6 Mg Tablet) 8.6 mg PO BID PRN PRN Reason: constipation Simethicone (Simethicone 80 Mg Tab.Chew) 80 mg PO TID PRN PRN Reason: gas Tamsulosin HCl (Tamsulosin Hcl 0.4 Mg Capsule) 0.4 mg PO DAILY [facility] Last Admin: 11/11/21 09:20 Dose: 0.4 mg Thiamine HCl (Thiamine Hcl 100 Mg Tablet) 100 mg PO DAILY [facility] Last Admin: 11/11/21 09:21 Dose: 100 mg Trazodone HCl (Trazodone Hcl 50 Mg Tablet) 50 mg PO BEDTIME PRN PRN Reason: Insomnia Last Admin: 11/07/21 20:21 Dose: 50 mg Allergies Allergies Allergy/AdvReac Type Severity Reaction Status Date / Time No Known Allergies Allergy Verified 11/05/21 21:04 Assessment & Plan Assessment & Plan (1) Dementia with behavioral disturbance: Code(s): F03.91 - Unspecified dementia with behavioral disturbance (2) Bipolar 1 disorder: Code(s): F31.9 - Bipolar disorder, unspecified Plan Patient admitted for acute Psychosis, presently with no acute medical issues. Please continue ongoing Psychiatric, should ECT be indicated, he will need no additioanl cardiopulmonary testing but suggest ECG before ECT Plan 1. Gather collateral information. In a 2. Continue with current treatment. 3. [place] test scored . 4. CT scan today. 5. Start Aricept 5 mg p.o. q.h.s. I spent ___20___ minutes with the patient and/or on the patient floor today, greater than?50% of which was spent counseling/coordinating care. Reason for contiued inpatient stay Substantial Risk for: inability to function, rapid decompensation and med/psych decompensation
[2021-11-11 18:00] VITALS: BP 129/72; PULSE 71; RESP 16; TEMP 36.2; O2SAT 100
[2021-11-11] MEDS: traZODone HCL 50 MG TABLET PO (20:04)
[2021-11-11] MEDS: Lithium Carbonate 300 MG TABLET 150 MG PO (20:04)
[2021-11-11] MEDS: OLANZapine 5 MG TABLET PO (20:04)
[2021-11-11] MEDS: Acetaminophen 325 MG TABLET 650 MG PO (21:19)
[2021-11-12 07:35] VITALS: BP 123/62; PULSE 74; RESP 14; TEMP 36.9; O2SAT 98
[2021-11-12] MEDS: Tamsulosin HCL 0.4 MG CAPSULE PO (09:54)
[2021-11-12] MEDS: Thiamine HCL 100 MG TABLET PO (09:54)
[2021-11-12] MEDS: Lithium Carbonate 300 MG CAPSULE PO (09:54)
[2021-11-12] MEDS: Aspirin 81 MG TAB.CHEW PO (09:54)
[2021-11-12] MEDS: Atorvastatin Calcium 40 MG TABLET PO (09:54)
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
[2021-11-12 18:00] VITALS: BP 127/62; PULSE 76; TEMP 37; O2SAT 100
[2021-11-12] MEDS: Lithium Carbonate 300 MG TABLET 150 MG PO (20:55)
[2021-11-12] MEDS: OLANZapine 5 MG TABLET PO (20:56)
[2021-11-13 07:00] VITALS: BP 127/77; PULSE 65; RESP 18; TEMP 36.4; O2SAT 99
[2021-11-13] MEDS: Thiamine HCL 100 MG TABLET PO (08:20)
[2021-11-13] MEDS: Aspirin 81 MG TAB.CHEW PO (08:20)
[2021-11-13] MEDS: Atorvastatin Calcium 40 MG TABLET PO (08:20)
[2021-11-13] MEDS: Tamsulosin HCL 0.4 MG CAPSULE PO (08:20)
[2021-11-13] MEDS: Lithium Carbonate 300 MG CAPSULE PO (08:20)
[2021-11-13 08:28] LABS: Anion Gap 11 (12-20); Blood Urea Nitrogen 35 mg/dL (9-16); Calcium 8.6 mg/dL (8.4-10.2); Carbon Dioxide 24 mmol/L (22-29); Chloride 110 mmol/L (96-108); Creatinine Clr Calc Pharmacy 32.3; Estimated Glomerular Filt Rate 33; Glucose Random 92 mg/dL (60-115); Potassium 4.6 mmol/L (3.3-5.1); Sodium 140 mmol/L (135-145)
[2021-11-13 09:12] LABS: Lithium 0.55 mmol/L (0.60-1.20)
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
[2021-11-13 18:00] VITALS: BP 124/62; PULSE 74; RESP 16; TEMP 36.9; O2SAT 99
[2021-11-13] MEDS: Melatonin 3 MG TABLET PO (20:41)
[2021-11-13] MEDS: OLANZapine 5 MG TABLET PO (20:42)
[2021-11-13] MEDS: Lithium Carbonate 300 MG TABLET 150 MG PO (20:44)
[2021-11-14 06:00] VITALS: BP 133/68; PULSE 73; RESP 14; TEMP 36.4; O2SAT 93
[2021-11-14] MEDS: Tamsulosin HCL 0.4 MG CAPSULE PO (08:34)
[2021-11-14] MEDS: Atorvastatin Calcium 40 MG TABLET PO (08:34)
[2021-11-14] MEDS: Lithium Carbonate 300 MG CAPSULE PO (08:35)
[2021-11-14] MEDS: Thiamine HCL 100 MG TABLET PO (08:35)
[2021-11-14] MEDS: Aspirin 81 MG TAB.CHEW PO (08:35)
[2021-11-14 18:00] VITALS: BP 131/71; PULSE 77; RESP 12; TEMP 37.2; O2SAT 98
[2021-11-14] MEDS: Acetaminophen 325 MG TABLET 650 MG PO (20:15)
[2021-11-14] MEDS: Melatonin 3 MG TABLET PO (20:17)
[2021-11-14] MEDS: Lithium Carbonate 300 MG TABLET 150 MG PO (20:17)
[2021-11-14] MEDS: OLANZapine 5 MG TABLET PO (20:18)
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
[2021-11-15] MEDS: OLANZapine 5 MG TABLET PO ×2 (00:39→20:06)
[2021-11-15] MEDS: hydrOXYzine HCL 25 MG TABLET PO (00:39)
[2021-11-15 07:30] VITALS: BP 123/79; PULSE 65; RESP 18; TEMP 35.8; O2SAT 97
[2021-11-15] MEDS: Thiamine HCL 100 MG TABLET PO (08:44)
[2021-11-15] MEDS: Atorvastatin Calcium 40 MG TABLET PO (08:44)
[2021-11-15] MEDS: Tamsulosin HCL 0.4 MG CAPSULE PO (08:44)
[2021-11-15] MEDS: Lithium Carbonate 300 MG CAPSULE PO (08:44)
[2021-11-15] MEDS: Aspirin 81 MG TAB.CHEW PO (08:44)
--- NOTE | 2021-11-15 11:53 | P.PNPSI_ITS ---
Subjective Subjective Date of Service: 11/15/21 Reason For Visit: Bipolar I D/O Current or most recent episode hypom Interim History: Patient intermittently hypersexual and reactive then apologizes. Still feels people were breaking in Mental Status Exam Mental Status Exam Patient Appearance: Well Grooomed Patient Orientation: Person and Situation Level of Consciousness: Awake Patient Behavior: Cooperative and Hypersexual Mood Description: Appropriate Affect Description: Labile Patient Cognition Impaired: Yes Ability to Follow Directions: Good Speech Pattern: Clear Memory Description: Episodic Impaired Hallucinations: None Delusions: Not Present Thought Process: Distracted Thought Content: positive for [place] and positive for Poverty of Content Depressive Symptoms: Increased Irritability Judgement: Fair Diagnostics Vital Signs (24Hr): Vital Signs - 24 hr 11/14/21 18:00 11/15/21 07:30 Temperature 98.9 F 96.5 F L Pulse Rate 77 65 Respiratory Rate 12 18 Blood Pressure 131/71 123/79 Pulse Oximetry 98 97 Oxygen Delivery Method Room Air Room Air BMI result Body Mass Index 22.4 Labs Results: 11/09/21 06:54 11/13/21 08:02 Imaging Radiology Impressions: ITS Impressions Head CT 11/11/21 15:00 IMPRESSION: Suspected 4.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 No midline shift of structures. 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 Generalized parenchymal volume loss and mild chronic white matter microangiopathy. No acute intracranial hemorrhage. If there is concern for a focal acute ischemic process, a follow-up MRI of the brain could be considered for further evaluation. Medications Medications Current Medications Acetaminophen (Acetaminophen 325 Mg Tablet) 650 mg PO Q6H PRN PRN Reason: Headache/Pain Mild Scale (1-3) Last Admin: 11/14/21 20:15 Dose: 650 mg Al Hydroxide/Mg Hydroxide (Magnesium Hydrox/Alum Hydrox 30 Ml Oral.Susp) 30 ml PO Q6H PRN PRN Reason: Heartburn/Nausea Aspirin (Aspirin 81 Mg Tab.Chew) 81 mg PO DAILY [facility] Last Admin: 11/15/21 08:44 Dose: 81 mg Atorvastatin Calcium (Atorvastatin Calcium 40 Mg Tablet) 40 mg PO DAILY [facility] Last Admin: 11/15/21 08:44 Dose: 40 mg Calamine (Calamine/Zinc Oxide Lotion 177 Ml Bottle) 1 appl TOPICAL QID PRN PRN Reason: poison kailee Last Admin: 11/09/21 13:46 Dose: 1 appl Guaifenesin/Dextromethorphan (Guaifenesin Dm 100/10/5 Ml 5 Ml Syrup) 5 ml PO Q4H PRN PRN Reason: cough, congestion Hydroxyzine HCl (Hydroxyzine Hcl 25 Mg Tablet) 25 mg PO BEDTIME PRN PRN Reason: Anxiety Last Admin: 11/15/21 00:39 Dose: 25 mg [place] Carbonate ([place] Carbonate 300 Mg Capsule) 300 mg PO DAILY [facility] Last Admin: 11/15/21 08:44 Dose: 300 mg [place] Carbonate ([place] Carbonate 300 Mg Tablet) 150 mg PO BEDTIME [facility] Last Admin: 11/14/21 20:17 Dose: 150 mg Magnesium Hydroxide (Milk Of Magnesia 30 Ml Oral.Susp) 30 ml PO DAILY PRN PRN Reason: Constipation Melatonin (Melatonin 3 Mg Tablet) 3 mg PO BEDTIME PRN PRN Reason: insomnia Last Admin: 11/14/21 20:17 Dose: 3 mg Olanzapine (Olanzapine 5 Mg Tablet) 5 mg PO BID PRN PRN Reason: agitation, anxiety Last Admin: 11/15/21 00:39 Dose: 5 mg Olanzapine (Olanzapine 5 Mg Tablet) 5 mg PO BEDTIME [facility] Last Admin: 11/14/21 20:18 Dose: 5 mg Polyethylene Glycol (Polyethylene Glycol 3350 17 Gm Powd.Pack) 17 gm PO DAILY PRN PRN Reason: constipation Senna (Sennosides 8.6 Mg Tablet) 8.6 mg PO BID PRN PRN Reason: constipation Simethicone (Simethicone 80 Mg Tab.Chew) 80 mg PO TID PRN PRN Reason: gas Tamsulosin HCl (Tamsulosin Hcl 0.4 Mg Capsule) 0.4 mg PO DAILY [facility] Last Admin: 11/15/21 08:44 Dose: 0.4 mg Thiamine HCl (Thiamine Hcl 100 Mg Tablet) 100 mg PO DAILY [facility] Last Admin: 11/15/21 08:44 Dose: 100 mg Trazodone HCl (Trazodone Hcl 50 Mg Tablet) 50 mg PO BEDTIME PRN PRN Reason: Insomnia Last Admin: 11/11/21 20:04 Dose: 50 mg Allergies Allergies Allergy/AdvReac Type Severity Reaction Status Date / Time No Known Allergies Allergy Verified 11/05/21 21:04 Assessment & Plan Assessment & Plan (1) Bipolar 1 disorder: Code(s): F31.9 - Bipolar disorder, unspecified (2) Dementia with behavioral disturbance: Code(s): F03.91 - Unspecified dementia with behavioral disturbance Plan Kareem is a 76 y.o. Male who carries a dx of Bipolar I DO, Dementia. He was psychiatrically evaluated at the [place] [facility] 10/29/21 due to his reporting erratic bx and pt has been violent towards her to the point that she no longer feels safe. He has been delusional, not able to care for himself, rapidly decompensating. Pt has been med non-adherent x 3.5 weeks. Li level was <0.1 on admission. UA negative for infection. Head CT non-acute.?Pt has hx of IPLOC and doing well on medication. Plan: -Pt was re-started on lithium at [facility], will continue at 300 mg QAM and 150 mg QHS and monitor for benefit, recent Li level 0.4 and pt has hx of maintenance dose at 300 mg BID, may benefit from an increased dose but will defer to primary team. Q15 min safety checks, CV Monitor response to medications. Monitor for safety in the milieu. Discharge on stabilization. Patient seen. Chart reviewed. Discussed with team. Obtain collateral contact info?as needed 11/14/21 some periods of hypersexuality lability cont lithium periods of paranoia 5 mg hs olanzapine cont 11/15/2021 Patient is superficially cooperative periods of provocative hypersexuality otherwise not obviously manic or hyperactive was not threatening I spent minutes with the patient and/or on the patient floor today, greater than?50% of which was spent counseling/coordinating care. Reason for contiued inpatient stay Substantial Risk for: harm to others and rapid decompensation
[2021-11-15 18:00] VITALS: BP 126/64; PULSE 80; RESP 16; TEMP 36.4; O2SAT 99
[2021-11-15] MEDS: Lithium Carbonate 300 MG TABLET 150 MG PO (20:06)
[2021-11-15] MEDS: traZODone HCL 50 MG TABLET PO (20:06)
[2021-11-16 07:00] VITALS: BP 144/68; PULSE 86; RESP 16; TEMP 36.3; O2SAT 100
[2021-11-16] MEDS: Atorvastatin Calcium 40 MG TABLET PO (08:51)
[2021-11-16] MEDS: Tamsulosin HCL 0.4 MG CAPSULE PO (08:51)
[2021-11-16] MEDS: Lithium Carbonate 300 MG CAPSULE PO (08:51)
[2021-11-16] MEDS: Aspirin 81 MG TAB.CHEW PO (08:51)
[2021-11-16] MEDS: Thiamine HCL 100 MG TABLET PO (08:51)
--- NOTE | 2021-11-16 12:22 | P.PNPSI_ITS ---
Subjective Subjective Date of Service: 11/16/21 Reason For Visit: Bipolar I D/O Current or most recent episode hypom Subjective Notes: Conditional Voluntary Interim History: the nursing staff reported the patient has been socially inappropriate at times but he has been easily redirectable. Over the weekend, last Tuesday he did sleep but last night he slept all night long with p.r.n. trazodone. On interview the patient was pleasant cooperative he denies new symptoms and he feels Okay , no evidence of psychosis or disorganized thought process but he looks less manic than Tuesday.. Mental Status Exam Mental Status Exam Patient Appearance: Well Grooomed Patient Orientation: Person Level of Consciousness: Awake Patient Behavior: Cooperative Mood Description: Constricted Affect Description: Calm Patient Cognition Impaired: Yes Ability to Follow Directions: Good Speech Pattern: Clear Hallucinations: None Delusions: Grandiose Thought Process: Distracted Thought Content: positive for Circum[place] Judgement: Fair Diagnostics Vital Signs (24Hr): Vital Signs - 24 hr 11/15/21 18:00 11/16/21 07:00 Temperature 97.6 F 97.3 F Pulse Rate 80 86 Respiratory Rate 16 16 Blood Pressure 126/64 144/68 H Pulse Oximetry 99 100 Oxygen Delivery Method Room Air Room Air BMI result Body Mass Index 22.4 Labs Results: 11/09/21 06:54 11/13/21 08:02 Imaging Radiology Impressions: ITS Impressions Head CT 11/11/21 15:00 IMPRESSION: Suspected 4.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 No midline shift of structures. 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 Generalized parenchymal volume loss and mild chronic white matter microangiopathy. No acute intracranial hemorrhage. If there is concern for a focal acute ischemic process, a follow-up MRI of the brain could be considered for further evaluation. Medications Medications Current Medications Acetaminophen (Acetaminophen 325 Mg Tablet) 650 mg PO Q6H PRN PRN Reason: Headache/Pain Mild Scale (1-3) Last Admin: 11/14/21 20:15 Dose: 650 mg Al Hydroxide/Mg Hydroxide (Magnesium Hydrox/Alum Hydrox 30 Ml Oral.Susp) 30 ml PO Q6H PRN PRN Reason: Heartburn/Nausea Aspirin (Aspirin 81 Mg Tab.Chew) 81 mg PO DAILY [facility] Last Admin: 11/16/21 08:51 Dose: 81 mg Atorvastatin Calcium (Atorvastatin Calcium 40 Mg Tablet) 40 mg PO DAILY [facility] Last Admin: 11/16/21 08:51 Dose: 40 mg Calamine (Calamine/Zinc Oxide Lotion 177 Ml Bottle) 1 appl TOPICAL QID PRN PRN Reason: poison kailee Last Admin: 11/09/21 13:46 Dose: 1 appl Guaifenesin/Dextromethorphan (Guaifenesin Dm 100/10/5 Ml 5 Ml Syrup) 5 ml PO Q4H PRN PRN Reason: cough, congestion Hydroxyzine HCl (Hydroxyzine Hcl 25 Mg Tablet) 25 mg PO BEDTIME PRN PRN Reason: Anxiety Last Admin: 11/15/21 00:39 Dose: 25 mg [place] Carbonate ([place] Carbonate 300 Mg Capsule) 300 mg PO DAILY [facility] Last Admin: 11/16/21 08:51 Dose: 300 mg [place] Carbonate ([place] Carbonate 300 Mg Tablet) 150 mg PO BEDTIME [facility] Last Admin: 11/15/21 20:06 Dose: 150 mg Magnesium Hydroxide (Milk Of Magnesia 30 Ml Oral.Susp) 30 ml PO DAILY PRN PRN Reason: Constipation Melatonin (Melatonin 3 Mg Tablet) 3 mg PO BEDTIME PRN PRN Reason: insomnia Last Admin: 11/14/21 20:17 Dose: 3 mg Olanzapine (Olanzapine 5 Mg Tablet) 5 mg PO BID PRN PRN Reason: agitation, anxiety Last Admin: 11/15/21 00:39 Dose: 5 mg Olanzapine (Olanzapine 5 Mg Tablet) 5 mg PO BEDTIME [facility] Last Admin: 11/15/21 20:06 Dose: 5 mg Polyethylene Glycol (Polyethylene Glycol 3350 17 Gm Powd.Pack) 17 gm PO DAILY PRN PRN Reason: constipation Senna (Sennosides 8.6 Mg Tablet) 8.6 mg PO BID PRN PRN Reason: constipation Simethicone (Simethicone 80 Mg Tab.Chew) 80 mg PO TID PRN PRN Reason: gas Tamsulosin HCl (Tamsulosin Hcl 0.4 Mg Capsule) 0.4 mg PO DAILY [facility] Last Admin: 11/16/21 08:51 Dose: 0.4 mg Thiamine HCl (Thiamine Hcl 100 Mg Tablet) 100 mg PO DAILY [facility] Last Admin: 11/16/21 08:51 Dose: 100 mg Trazodone HCl (Trazodone Hcl 50 Mg Tablet) 50 mg PO BEDTIME PRN PRN Reason: Insomnia Last Admin: 11/15/21 20:06 Dose: 50 mg Allergies Allergies Allergy/AdvReac Type Severity Reaction Status Date / Time No Known Allergies Allergy Verified 11/05/21 21:04 Assessment & Plan Assessment & Plan (1) Bipolar 1 disorder: Code(s): F31.9 - Bipolar disorder, unspecified (2) Dementia with behavioral disturbance: Code(s): F03.91 - Unspecified dementia with behavioral disturbance Plan Kareem is a 76 y.o. Male who carries a dx of Bipolar I DO, Dementia. He was psychiatrically evaluated at the [place] [facility] 10/29/21 due to his reporting erratic bx and pt has been violent towards her to the point that she no longer feels safe. He has been delusional, not able to care for himself, rapidly decompensating. Pt has been med non-adherent x 3.5 weeks. Li level was <0.1 on admission. UA negative for infection. Head CT non-acute.?Pt has hx of IPLOC and doing well on medication. Plan: 1. Keep on lithium, and now Zyprexa. 2. 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 He has now dementia his scored very low most likely due to vascular even though that he is independent in his ADL less. His [place] test is 04/21. 3. Family meeting some for discharge planning I spent ___20___ minutes with the patient and/or on the patient floor today, greater than?50% of which was spent counseling/coordinating care. Reason for contiued inpatient stay Substantial Risk for: inability to function, rapid decompensation and med/psych decompensation
[2021-11-16 18:00] VITALS: BP 143/74; PULSE 77; TEMP 36.9; O2SAT 99
[2021-11-16] MEDS: OLANZapine 5 MG TABLET PO (20:54)
[2021-11-16] MEDS: Lithium Carbonate 300 MG TABLET 150 MG PO (20:54)
[2021-11-16] MEDS: Acetaminophen 325 MG TABLET 650 MG PO (21:48)
[2021-11-17 07:05] VITALS: BP 129/76; PULSE 71; RESP 16; TEMP 36.7; O2SAT 98
[2021-11-17] MEDS: Lithium Carbonate 300 MG CAPSULE PO (08:37)
[2021-11-17] MEDS: Thiamine HCL 100 MG TABLET PO (08:37)
[2021-11-17] MEDS: Tamsulosin HCL 0.4 MG CAPSULE PO (08:37)
[2021-11-17] MEDS: Atorvastatin Calcium 40 MG TABLET PO (08:37)
[2021-11-17] MEDS: Aspirin 81 MG TAB.CHEW PO (08:37)
[2021-11-17] MEDS: Acetaminophen 325 MG TABLET 650 MG PO (08:39)
--- NOTE | 2021-11-17 12:03 | HO.PSYCHPN ---
Subjective Subjective Date of Service: 11/17/21 Reason For Visit: Bipolar I D/O Current or most recent episode hypom Subjective Notes: Conditional Voluntary Interim History: The nursing staff reported the patient slept 7 hours and he has been fully compliant with treatment. He needs constant cuing and prompting for ADL less but he is pretty independent. The staff reported he is doing much better. On interview, the patient denies new symptoms he is pleasant and cooperative plan The marriage and family social worker reported that today we are going to have a family meeting at 13:00. Mental Status Exam Mental Status Exam Patient Appearance: Well Grooomed Patient Orientation: Person Level of Consciousness: Awake Patient Behavior: Cooperative Mood Description: Constricted Affect Description: Calm Patient Cognition Impaired: Yes Ability to Follow Directions: Good Speech Pattern: Clear Hallucinations: None Delusions: Not Present Thought Process: Distracted Thought Content: positive for [place] and positive for Poverty of Content Judgement: Fair Diagnostics Vital Signs (24Hr): Vital Signs - 24 hr 11/16/21 18:00 11/17/21 07:05 Temperature 98.4 F 98.0 F Pulse Rate 77 71 Respiratory Rate 16 Blood Pressure 143/74 H 129/76 Pulse Oximetry 99 98 Oxygen Delivery Method Room Air Room Air BMI result Body Mass Index 22.4 Labs Results: 11/09/21 06:54 11/13/21 08:02 Imaging Radiology Impressions: ITS Impressions Head CT 11/11/21 15:00 IMPRESSION: Suspected 4.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 No midline shift of structures. 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 Generalized parenchymal volume loss and mild chronic white matter microangiopathy. No acute intracranial hemorrhage. If there is concern for a focal acute ischemic process, a follow-up MRI of the brain could be considered for further evaluation. Medications Medications Current Medications Acetaminophen (Acetaminophen 325 Mg Tablet) 650 mg PO Q6H PRN PRN Reason: Headache/Pain Mild Scale (1-3) Last Admin: 11/17/21 08:39 Dose: 650 mg Al Hydroxide/Mg Hydroxide (Magnesium Hydrox/Alum Hydrox 30 Ml Oral.Susp) 30 ml PO Q6H PRN PRN Reason: Heartburn/Nausea Aspirin (Aspirin 81 Mg Tab.Chew) 81 mg PO DAILY [facility] Last Admin: 11/17/21 08:37 Dose: 81 mg Atorvastatin Calcium (Atorvastatin Calcium 40 Mg Tablet) 40 mg PO DAILY [facility] Last Admin: 11/17/21 08:37 Dose: 40 mg Calamine (Calamine/Zinc Oxide Lotion 177 Ml Bottle) 1 appl TOPICAL QID PRN PRN Reason: poison kailee Last Admin: 11/09/21 13:46 Dose: 1 appl Guaifenesin/Dextromethorphan (Guaifenesin Dm 100/10/5 Ml 5 Ml Syrup) 5 ml PO Q4H PRN PRN Reason: cough, congestion Hydroxyzine HCl (Hydroxyzine Hcl 25 Mg Tablet) 25 mg PO BEDTIME PRN PRN Reason: Anxiety Last Admin: 11/15/21 00:39 Dose: 25 mg [place] Carbonate ([place] Carbonate 300 Mg Capsule) 300 mg PO DAILY [facility] Last Admin: 11/17/21 08:37 Dose: 300 mg [place] Carbonate ([place] Carbonate 300 Mg Tablet) 150 mg PO BEDTIME [facility] Last Admin: 11/16/21 20:54 Dose: 150 mg Magnesium Hydroxide (Milk Of Magnesia 30 Ml Oral.Susp) 30 ml PO DAILY PRN PRN Reason: Constipation Melatonin (Melatonin 3 Mg Tablet) 3 mg PO BEDTIME PRN PRN Reason: insomnia Last Admin: 11/14/21 20:17 Dose: 3 mg Olanzapine (Olanzapine 5 Mg Tablet) 5 mg PO BID PRN PRN Reason: agitation, anxiety Last Admin: 11/15/21 00:39 Dose: 5 mg Olanzapine (Olanzapine 5 Mg Tablet) 5 mg PO BEDTIME [facility] Last Admin: 11/16/21 20:54 Dose: 5 mg Polyethylene Glycol (Polyethylene Glycol 3350 17 Gm Powd.Pack) 17 gm PO DAILY PRN PRN Reason: constipation Senna (Sennosides 8.6 Mg Tablet) 8.6 mg PO BID PRN PRN Reason: constipation Simethicone (Simethicone 80 Mg Tab.Chew) 80 mg PO TID PRN PRN Reason: gas Tamsulosin HCl (Tamsulosin Hcl 0.4 Mg Capsule) 0.4 mg PO DAILY [facility] Last Admin: 11/17/21 08:37 Dose: 0.4 mg Thiamine HCl (Thiamine Hcl 100 Mg Tablet) 100 mg PO DAILY [facility] Last Admin: 11/17/21 08:37 Dose: 100 mg Trazodone HCl (Trazodone Hcl 50 Mg Tablet) 50 mg PO BEDTIME PRN PRN Reason: Insomnia Last Admin: 11/15/21 20:06 Dose: 50 mg Allergies Allergies Allergy/AdvReac Type Severity Reaction Status Date / Time No Known Allergies Allergy Verified 11/05/21 21:04 Assessment & Plan Assessment & Plan (1) Bipolar 1 disorder: Code(s): F31.9 - Bipolar disorder, unspecified (2) Dementia with behavioral disturbance: Code(s): F03.91 - Unspecified dementia with behavioral disturbance Plan Kareem is a 76 y.o. Male who carries a dx of Bipolar I DO, Dementia. He was psychiatrically evaluated at the [place] ED 10/29/21 due to his reporting erratic bx and pt has been violent towards her to the point that she no longer feels safe. He has been delusional, not able to care for himself, rapidly decompensating. Pt has been med non-adherent x 3.5 weeks. Li level was <0.1 on admission. UA negative for infection. Head CT non-acute.?Pt has hx of IPLOC and doing well on medication. Plan: 1. Keep on lithium, and now Zyprexa. 2. 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 He has now dementia his scored very low most likely due to vascular even though that he is independent in his ADL less. His [place] test is 04/21. 3. Family meeting some for discharge planning I spent ___20___ minutes with the patient and/or on the patient floor today, greater than?50% of which was spent counseling/coordinating care. Reason for contiued inpatient stay Substantial Risk for: inability to function, rapid decompensation and med/psych decompensation
[2021-11-17 18:00] VITALS: BP 134/65; PULSE 83; RESP 16; TEMP 37.3; O2SAT 98
[2021-11-17] MEDS: Lithium Carbonate 300 MG TABLET 150 MG PO (20:25)
[2021-11-17] MEDS: OLANZapine 5 MG TABLET PO (20:26)
[2021-11-18 08:10] VITALS: BP 133/66; PULSE 77; RESP 18; TEMP 36.6; O2SAT 98
[2021-11-18] MEDS: Aspirin 81 MG TAB.CHEW PO (08:23)
[2021-11-18] MEDS: Lithium Carbonate 300 MG CAPSULE PO (08:23)
[2021-11-18] MEDS: Thiamine HCL 100 MG TABLET PO (08:24)
[2021-11-18] MEDS: Tamsulosin HCL 0.4 MG CAPSULE PO (08:24)
[2021-11-18] MEDS: Atorvastatin Calcium 40 MG TABLET PO (08:24)
--- NOTE | 2021-11-18 13:05 | HO.PSYCHPN ---
Subjective Subjective Date of Service: 11/18/21 Reason For Visit: Bipolar I D/O Current or most recent episode hypom Subjective Notes: Conditional Voluntary Interim History: the nursing staff reported that the patient slept well, he was fully compliant with treatment. He denies new symptoms. On interview the patient denies new symptoms he is pleasant and cooperative with the current treatment. Medication Compliance: Yes Side effects from medications: No Attending Groups: Yes Mental Status Exam Mental Status Exam Patient Appearance: Well Grooomed Patient Orientation: Person and Situation Level of Consciousness: Awake Patient Behavior: Cooperative Mood Description: Constricted Affect Description: Labile Patient Cognition Impaired: Yes Ability to Follow Directions: Good Speech Pattern: Clear Hallucinations: None Delusions: Not Present Thought Process: Linear Judgement: Fair Diagnostics Vital Signs (24Hr): Vital Signs - 24 hr 11/17/21 18:00 11/18/21 08:10 Temperature 99.1 F 97.8 F Pulse Rate 83 77 Respiratory Rate 16 18 Blood Pressure 134/65 133/66 Pulse Oximetry 98 98 Oxygen Delivery Method Room Air Room Air BMI result Body Mass Index 22.4 Labs Results: 11/09/21 06:54 11/13/21 08:02 Imaging Radiology Impressions: ITS Impressions Head CT 11/11/21 15:00 IMPRESSION: Suspected 4.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 No midline shift of structures. 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 Generalized parenchymal volume loss and mild chronic white matter microangiopathy. No acute intracranial hemorrhage. If there is concern for a focal acute ischemic process, a follow-up MRI of the brain could be considered for further evaluation. Medications Medications Current Medications Acetaminophen (Acetaminophen 325 Mg Tablet) 650 mg PO Q6H PRN PRN Reason: Headache/Pain Mild Scale (1-3) Last Admin: 11/17/21 08:39 Dose: 650 mg Al Hydroxide/Mg Hydroxide (Magnesium Hydrox/Alum Hydrox 30 Ml Oral.Susp) 30 ml PO Q6H PRN PRN Reason: Heartburn/Nausea Aspirin (Aspirin 81 Mg Tab.Chew) 81 mg PO DAILY [facility] Last Admin: 11/18/21 08:23 Dose: 81 mg Atorvastatin Calcium (Atorvastatin Calcium 40 Mg Tablet) 40 mg PO DAILY [facility] Last Admin: 11/18/21 08:24 Dose: 40 mg Calamine (Calamine/Zinc Oxide Lotion 177 Ml Bottle) 1 appl TOPICAL QID PRN PRN Reason: poison kailee Last Admin: 11/09/21 13:46 Dose: 1 appl Guaifenesin/Dextromethorphan (Guaifenesin Dm 100/10/5 Ml 5 Ml Syrup) 5 ml PO Q4H PRN PRN Reason: cough, congestion Hydroxyzine HCl (Hydroxyzine Hcl 25 Mg Tablet) 25 mg PO BEDTIME PRN PRN Reason: Anxiety Last Admin: 11/15/21 00:39 Dose: 25 mg [place] Carbonate ([place] Carbonate 300 Mg Capsule) 300 mg PO DAILY [facility] Last Admin: 11/18/21 08:23 Dose: 300 mg [place] Carbonate ([place] Carbonate 300 Mg Tablet) 150 mg PO BEDTIME [facility] Last Admin: 11/17/21 20:25 Dose: 150 mg Magnesium Hydroxide (Milk Of Magnesia 30 Ml Oral.Susp) 30 ml PO DAILY PRN PRN Reason: Constipation Melatonin (Melatonin 3 Mg Tablet) 3 mg PO BEDTIME PRN PRN Reason: insomnia Last Admin: 11/14/21 20:17 Dose: 3 mg Olanzapine (Olanzapine 5 Mg Tablet) 5 mg PO BID PRN PRN Reason: agitation, anxiety Last Admin: 11/15/21 00:39 Dose: 5 mg Olanzapine (Olanzapine 5 Mg Tablet) 5 mg PO BEDTIME [facility] Last Admin: 11/17/21 20:26 Dose: 5 mg Polyethylene Glycol (Polyethylene Glycol 3350 17 Gm Powd.Pack) 17 gm PO DAILY PRN PRN Reason: constipation Senna (Sennosides 8.6 Mg Tablet) 8.6 mg PO BID PRN PRN Reason: constipation Simethicone (Simethicone 80 Mg Tab.Chew) 80 mg PO TID PRN PRN Reason: gas Tamsulosin HCl (Tamsulosin Hcl 0.4 Mg Capsule) 0.4 mg PO DAILY [facility] Last Admin: 11/18/21 08:24 Dose: 0.4 mg Thiamine HCl (Thiamine Hcl 100 Mg Tablet) 100 mg PO DAILY [facility] Last Admin: 11/18/21 08:24 Dose: 100 mg Trazodone HCl (Trazodone Hcl 50 Mg Tablet) 50 mg PO BEDTIME PRN PRN Reason: Insomnia Last Admin: 11/15/21 20:06 Dose: 50 mg Allergies Allergies Allergy/AdvReac Type Severity Reaction Status Date / Time No Known Allergies Allergy Verified 11/05/21 21:04 Assessment & Plan Assessment & Plan (1) Bipolar 1 disorder: Code(s): F31.9 - Bipolar disorder, unspecified (2) Dementia with behavioral disturbance: Code(s): F03.91 - Unspecified dementia with behavioral disturbance Plan Kareem is a 76 y.o. Male who carries a dx of Bipolar I DO, Dementia. He was psychiatrically evaluated at the [facility] ED 10/29/21 due to his reporting erratic bx and pt has been violent towards her to the point that she no longer feels safe. He has been delusional, not able to care for himself, rapidly decompensating. Pt has been med non-adherent x 3.5 weeks. Li level was <0.1 on admission. UA negative for infection. Head CT non-acute.?Pt has hx of IPLOC and doing well on medication. Plan: 1. Keep on lithium, and now Zyprexa. 2. 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 He has now dementia his scored very low most likely due to vascular even though that he is independent in his ADL less. His [place] test is 04/21. 3. Family meeting some for discharge planning , we have decided to discharged at the end of the week I spent ___20___ minutes with the patient and/or on the patient floor today, greater than?50% of which was spent counseling/coordinating care. Reason for contiued inpatient stay Substantial Risk for: inability to function, rapid decompensation and med/psych decompensation
[2021-11-18 18:00] VITALS: BP 131/75; PULSE 77; RESP 14; TEMP 37.3; O2SAT 98
[2021-11-18] MEDS: Lithium Carbonate 300 MG TABLET 150 MG PO (20:56)
[2021-11-18] MEDS: OLANZapine 5 MG TABLET PO (20:56)
[2021-11-19 06:00] VITALS: BP 139/73; PULSE 79; TEMP 36.9; O2SAT 99
[2021-11-19 07:00] VITALS: BMI 25.1
[2021-11-19] MEDS: Aspirin 81 MG TAB.CHEW PO (08:47)
[2021-11-19] MEDS: Atorvastatin Calcium 40 MG TABLET PO (08:47)
[2021-11-19] MEDS: Thiamine HCL 100 MG TABLET PO (08:47)
[2021-11-19] MEDS: Tamsulosin HCL 0.4 MG CAPSULE PO (08:47)
[2021-11-19] MEDS: Lithium Carbonate 300 MG CAPSULE PO (08:48)
[2021-11-19 09:09] LABS: Lithium 0.52 mmol/L (0.60-1.20)
[2021-11-19 09:26] LABS: Anion Gap 13 (12-20); Blood Urea Nitrogen 32 mg/dL (9-16); Calcium 8.4 mg/dL (8.4-10.2); Carbon Dioxide 22 mmol/L (22-29); Chloride 109 mmol/L (96-108); Creatinine Clr Calc Pharmacy 34.2; Estimated Glomerular Filt Rate 35; Glucose Random 120 mg/dL (60-115); Potassium 4.4 mmol/L (3.3-5.1); Sodium 140 mmol/L (135-145)
[2021-11-19 13:05] LABS: MANUAL DIFF FLAG NO
[2021-11-19 13:15] LABS: Basophils Percent Auto 0.7 % (0-2); Eosinophils Absolute Auto 0.4 X10*3/uL (0.0-0.4); Eosinophils Percent Auto 6.4 % (0-4); Hematocrit 31.1 % (42.0-52.0); Hemoglobin 9.7 g/dl (14.0-18.0); Imm Gran Abs Auto 0.03 X10*3/uL (0.00-0.03); Imm Gran Pct Auto 0.5 % (0.0-0.4); Lymphocytes Absolute Auto 0.8 X10*3/uL (1.2-4.9); Lymphocytes Percent Auto 14.7 % (20-40); Mean Corpuscular HGB Conc 31.2 g/dl (31.0-36.0); Mean Corpuscular Hemoglobin 27.3 pg (27.0-33.0); Mean Corpuscular Volume 87.6 fL (80.0-98.0); Mean Platelet Volume 9.7 fL (9.4-12.4); Monocytes Absolute Auto 0.6 X10*3/uL (0.1-1.2); Monocytes Percent Auto 9.8 % (2-11); Neutrophils Absolute Auto 3.8 x10*3/uL (2.0-8.3); Neutrophils Percent Auto 67.9 % (45-73); Platelet Count 234 X10*3/uL (160-400); Red Blood Count 3.55 X10*6/uL (4.60-5.80); Red Cell Distribution Width 13.5 % (11.0-16.0); White Blood Count 5.6 X10*3/uL (4.8-10.8)
[2021-11-19 14:30] LABS: Alanine Aminotransferase 24 U/L (0-40); Albumin Level 3.9 g/dL (3.5-5.0); Alkaline Phosphatase 64 U/L (39-117); Aspartate Amino Transferase 22 U/L (5-37); Bilirubin Direct 0.2 mg/dL (0.0-0.5); Bilirubin Total 0.4 mg/dL (0.0-1.0); Total Protein 6.7 g/dL (6.5-8.0)
--- NOTE | 2021-11-19 14:41 | HO.PM.IMPN ---
Subjective Subjective Date of Service: 11/19/21 Interval History: Leg swelling Review of Systems Patient seen and examined-patient denies any pain or numbness or weakness or itchiness on the legs. Legs are bilaterally swollen , no significant erythema noted. Physical Exam Vital Signs: Vital Signs: Last Vital Signs Temp 98.4 F 11/19/21 06:00 Pulse 79 11/19/21 06:00 Resp 14 11/18/21 18:00 BP 139/73 11/19/21 06:00 Pulse Ox 99 11/19/21 06:00 O2 Del Method 11/19/21 06:00 BMI result Body Mass Index 22.4 Appearance: Alert.? Oriented, not in distress.? cvs: rrr, [id number] , no murmur res: clear to auscultation ,no rhonchii or wheezing abd: no rebound or guarding ,nt, bs present. ext pulses present , no cyanosis , has b/l leg swellin neuro: nonfocal. Objective Data Active Medications Acetaminophen (Acetaminophen 325 Mg Tablet) 650 mg PO Q6H PRN PRN Reason: Headache/Pain Mild Scale (1-3) Last Admin: 11/17/21 08:39 Dose: 650 mg Documented By: KAYLENE Al Hydroxide/Mg Hydroxide (Magnesium Hydrox/Alum Hydrox 30 Ml Oral.Susp) 30 ml PO Q6H PRN PRN Reason: Heartburn/Nausea Amoxicillin/Clavulanate Potassium (Amoxicillin/Potassium Clav 500 Mg Tablet) 500 mg PO Q12H [facility] Last Admin: 11/19/21 14:34 Dose: Not Given Documented By: FABIO Non-Admin Reason: Patient Refused Aspirin (Aspirin 81 Mg Tab.Chew) 81 mg PO DAILY [facility] Last Admin: 11/19/21 08:47 Dose: 81 mg Documented By: FABIO Atorvastatin Calcium (Atorvastatin Calcium 40 Mg Tablet) 40 mg PO DAILY [facility] Last Admin: 11/19/21 08:47 Dose: 40 mg Documented By: FABIO Calamine (Calamine/Zinc Oxide Lotion 177 Ml Bottle) 1 appl TOPICAL QID PRN PRN Reason: poison kailee Last Admin: 11/09/21 13:46 Dose: 1 appl Documented By: BLANE Guaifenesin/Dextromethorphan (Guaifenesin Dm 100/10/5 Ml 5 Ml Syrup) 5 ml PO Q4H PRN PRN Reason: cough, congestion Hydroxyzine HCl (Hydroxyzine Hcl 25 Mg Tablet) 25 mg PO BEDTIME PRN PRN Reason: Anxiety Last Admin: 11/15/21 00:39 Dose: 25 mg Documented By: CLAUS [place] Carbonate ([place] Carbonate 300 Mg Capsule) 300 mg PO DAILY [facility] Last Admin: 11/19/21 08:48 Dose: 300 mg Documented By: FABIO [place] Carbonate ([place] Carbonate 300 Mg Tablet) 150 mg PO BEDTIME [facility] Last Admin: 11/18/21 20:56 Dose: 150 mg Documented By: CLAUS Magnesium Hydroxide (Milk Of Magnesia 30 Ml Oral.Susp) 30 ml PO DAILY PRN PRN Reason: Constipation Melatonin (Melatonin 3 Mg Tablet) 3 mg PO BEDTIME PRN PRN Reason: insomnia Last Admin: 11/14/21 20:17 Dose: 3 mg Documented By: CLAUS Olanzapine (Olanzapine 5 Mg Tablet) 5 mg PO BID PRN PRN Reason: agitation, anxiety Last Admin: 11/15/21 00:39 Dose: 5 mg Documented By: CLAUS Olanzapine (Olanzapine 5 Mg Tablet) 5 mg PO BEDTIME [facility] Last Admin: 11/18/21 20:56 Dose: 5 mg Documented By: CLAUS Polyethylene Glycol (Polyethylene Glycol 3350 17 Gm Powd.Pack) 17 gm PO DAILY PRN PRN Reason: constipation Senna (Sennosides 8.6 Mg Tablet) 8.6 mg PO BID PRN PRN Reason: constipation Simethicone (Simethicone 80 Mg Tab.Chew) 80 mg PO TID PRN PRN Reason: gas Tamsulosin HCl (Tamsulosin Hcl 0.4 Mg Capsule) 0.4 mg PO DAILY [facility] Last Admin: 11/19/21 08:47 Dose: 0.4 mg Documented By: FABIO Thiamine HCl (Thiamine Hcl 100 Mg Tablet) 100 mg PO DAILY [facility] Last Admin: 11/19/21 08:47 Dose: 100 mg Documented By: FABIO Trazodone HCl (Trazodone Hcl 50 Mg Tablet) 50 mg PO BEDTIME PRN PRN Reason: Insomnia Last Admin: 11/15/21 20:06 Dose: 50 mg Documented By: SHARITA Labs CBC & Chem 7: 11/19/21 12:53 11/19/21 07:56 Labs: Laboratory Results - last 24 hr 11/19/21 11/19/21 11/19/21 07:56 07:56 12:53 MCV 87.6 MCH 27.3 MCHC 31.2 RDW 13.5 Plt Count 234 MPV 9.7 Immature Gran % (Auto) 0.5 H Neut % (Auto) 67.9 Lymph % (Auto) 14.7 L [place] % (Auto) 9.8 Eos % (Auto) 6.4 H Baso % (Auto) 0.7 Lymph # (Auto) 0.8 L [place] # (Auto) 0.6 Eos # (Auto) 0.4 Baso # (Auto) 0.0 Abs Immat Gran (auto) 0.03 Absolute Neuts (auto) 3.8 Absolute Nucleated RBC 0.000 Nucleated RBC % (auto) 0.0 Anion Gap 13 Estim Creat Clear Calc 34.2 Estimated GFR 35 Random Glucose 120 H Calcium 8.4 Total Bilirubin 0.4 Direct Bilirubin 0.2 AST 22 ALT 24 Alkaline Phosphatase 64 Total Protein 6.7 Albumin 3.9 [place] 0.52 L Assessment and Plan (1) Leg swelling: Status: Acute Plan 76 year old male with Bipolar disorder, CKD, history of CVA, HTN, history of right renal mass discharged from [facility] 11/05/21 after admission? for acute Psychosis-(patient was already seen by hospitalist service initially on 11/06/21 -please refer to hospitalist consult note ). Called to evaluate patient for leg swelling Leg swelling: He said he had poison kailee few weeks back. But no itchiness or rash or any pain Walking fine Albumin and LFTs are normal ? Related to CKD advised to BNP, bilateral leg duplex, Nephro evaluation. No leukocytosis, no fever no erythema on legs and bilateral leg swelling less likely to be cellulitis. Above was discussed with the psych provider in detail-please call us for any questions. Quality Stroke Does the patient have a stroke diagnosis?: No VTE Prior VTE?: No VTE Risk Level:: Medical - low VTE Device Contraindication: N/A - Device Ordered VTE Drug Contraindication: N/A - Med Ordered
--- NOTE | 2021-11-19 14:43 | HO.PSYCHPN ---
Subjective Subjective Date of Service: 11/19/21 Reason For Visit: Bipolar I D/O Current or most recent episode hypom Subjective Notes: Conditional Voluntary Interim History: The nursing staff reported the patient has been pleasant and cooperative, fully compliant with treatment. The staff reported the patient has soaring legs and I called Medicine. Apparently there is no evidence of cellulitis and we will call Nephrology for follow-up. On interview the patient denies new symptoms Mental Status Exam Mental Status Exam Patient Appearance: Well Grooomed Patient Orientation: Person and Situation Level of Consciousness: Awake Patient Behavior: Cooperative Mood Description: Calm Affect Description: Constricted Patient Cognition Impaired: No Ability to Follow Directions: Good Speech Pattern: Clear Memory Description: Intact Hallucinations: None Delusions: Not Present Thought Process: Distracted Thought Content: positive for Circumstantial Judgement: Fair Diagnostics Vital Signs (24Hr): Vital Signs - 24 hr 11/18/21 18:00 11/19/21 06:00 Temperature 99.1 F 98.4 F Pulse Rate 77 79 Respiratory Rate 14 Blood Pressure 131/75 139/73 Pulse Oximetry 98 99 Oxygen Delivery Method Room Air Room Air BMI result Body Mass Index 25.1 Labs Results: 11/19/21 12:53 11/19/21 07:56 Labs: Laboratory Results - last 48 hr 11/19/21 11/19/21 11/19/21 07:56 07:56 12:53 WBC 5.6 RBC 3.55 L Hgb 9.7 L Hct 31.1 L MCV 87.6 MCH 27.3 MCHC 31.2 RDW 13.5 Plt Count 234 MPV 9.7 Immature Gran % (Auto) 0.5 H Neut % (Auto) 67.9 Lymph % (Auto) 14.7 L [place] % (Auto) 9.8 Eos % (Auto) 6.4 H Baso % (Auto) 0.7 Lymph # (Auto) 0.8 L [place] # (Auto) 0.6 Eos # (Auto) 0.4 Baso # (Auto) 0.0 Abs Immat Gran (auto) 0.03 Absolute Neuts (auto) 3.8 Absolute Nucleated RBC 0.000 Nucleated RBC % (auto) 0.0 Sodium 140 Potassium 4.4 Chloride 109 H Carbon Dioxide 22 Anion Gap 13 BUN 32 H Creatinine 1.90 H Estim Creat Clear Calc 34.2 Estimated GFR 35 Random Glucose 120 H Calcium 8.4 Total Bilirubin 0.4 Direct Bilirubin 0.2 AST 22 ALT 24 Alkaline Phosphatase 64 Total Protein 6.7 Albumin 3.9 [place] 0.52 L Imaging Radiology Impressions: ITS Impressions Head CT 11/11/21 15:00 IMPRESSION: Suspected 4.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 No midline shift of structures. 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 Generalized parenchymal volume loss and mild chronic white matter microangiopathy. No acute intracranial hemorrhage. If there is concern for a focal acute ischemic process, a follow-up MRI of the brain could be considered for further evaluation. Medications Medications Current Medications Acetaminophen (Acetaminophen 325 Mg Tablet) 650 mg PO Q6H PRN PRN Reason: Headache/Pain Mild Scale (1-3) Last Admin: 11/17/21 08:39 Dose: 650 mg Al Hydroxide/Mg Hydroxide (Magnesium Hydrox/Alum Hydrox 30 Ml Oral.Susp) 30 ml PO Q6H PRN PRN Reason: Heartburn/Nausea Amoxicillin/Clavulanate Potassium (Amoxicillin/Potassium Clav 500 Mg Tablet) 500 mg PO Q12H [facility] Last Admin: 11/19/21 14:34 Dose: Not Given Aspirin (Aspirin 81 Mg Tab.Chew) 81 mg PO DAILY [facility] Last Admin: 11/19/21 08:47 Dose: 81 mg Atorvastatin Calcium (Atorvastatin Calcium 40 Mg Tablet) 40 mg PO DAILY [facility] Last Admin: 11/19/21 08:47 Dose: 40 mg Calamine (Calamine/Zinc Oxide Lotion 177 Ml Bottle) 1 appl TOPICAL QID PRN PRN Reason: poison kailee Last Admin: 11/09/21 13:46 Dose: 1 appl Guaifenesin/Dextromethorphan (Guaifenesin Dm 100/10/5 Ml 5 Ml Syrup) 5 ml PO Q4H PRN PRN Reason: cough, congestion Hydroxyzine HCl (Hydroxyzine Hcl 25 Mg Tablet) 25 mg PO BEDTIME PRN PRN Reason: Anxiety Last Admin: 11/15/21 00:39 Dose: 25 mg [place] Carbonate ([place] Carbonate 300 Mg Capsule) 300 mg PO DAILY [facility] Last Admin: 11/19/21 08:48 Dose: 300 mg [place] Carbonate ([place] Carbonate 300 Mg Tablet) 150 mg PO BEDTIME [facility] Last Admin: 11/18/21 20:56 Dose: 150 mg Magnesium Hydroxide (Milk Of Magnesia 30 Ml Oral.Susp) 30 ml PO DAILY PRN PRN Reason: Constipation Melatonin (Melatonin 3 Mg Tablet) 3 mg PO BEDTIME PRN PRN Reason: insomnia Last Admin: 11/14/21 20:17 Dose: 3 mg Olanzapine (Olanzapine 5 Mg Tablet) 5 mg PO BID PRN PRN Reason: agitation, anxiety Last Admin: 11/15/21 00:39 Dose: 5 mg Olanzapine (Olanzapine 5 Mg Tablet) 5 mg PO BEDTIME [facility] Last Admin: 11/18/21 20:56 Dose: 5 mg Polyethylene Glycol (Polyethylene Glycol 3350 17 Gm Powd.Pack) 17 gm PO DAILY PRN PRN Reason: constipation Senna (Sennosides 8.6 Mg Tablet) 8.6 mg PO BID PRN PRN Reason: constipation Simethicone (Simethicone 80 Mg Tab.Chew) 80 mg PO TID PRN PRN Reason: gas Tamsulosin HCl (Tamsulosin Hcl 0.4 Mg Capsule) 0.4 mg PO DAILY [facility] Last Admin: 11/19/21 08:47 Dose: 0.4 mg Thiamine HCl (Thiamine Hcl 100 Mg Tablet) 100 mg PO DAILY [facility] Last Admin: 11/19/21 08:47 Dose: 100 mg Trazodone HCl (Trazodone Hcl 50 Mg Tablet) 50 mg PO BEDTIME PRN PRN Reason: Insomnia Last Admin: 11/15/21 20:06 Dose: 50 mg Allergies Allergies Allergy/AdvReac Type Severity Reaction Status Date / Time No Known Allergies Allergy Verified 11/05/21 21:04 Assessment & Plan Assessment & Plan (1) Bipolar 1 disorder: Code(s): F31.9 - Bipolar disorder, unspecified (2) Dementia with behavioral disturbance: Code(s): F03.91 - Unspecified dementia with behavioral disturbance Plan Kareem is a 76 y.o. Male who carries a dx of Bipolar I DO, Dementia. He was psychiatrically evaluated at the [place] [facility] 10/29/21 due to his reporting erratic bx and pt has been violent towards her to the point that she no longer feels safe. He has been delusional, not able to care for himself, rapidly decompensating. Pt has been med non-adherent x 3.5 weeks. Li level was <0.1 on admission. UA negative for infection. Head CT non-acute.?Pt has hx of IPLOC and doing well on medication. Plan: 1. Keep on lithium, and now Zyprexa. 2. 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 He has now dementia his scored very low most likely due to vascular even though that he is independent in his ADL less. His [place] test is 04/21. 3. Family meeting some for discharge planning , we have decided to discharged at the end of the week. 4. Consult with Medicine, please see the note of Medicine we will follow-up and referred to Nephrology. I spent ___20___ minutes with the patient and/or on the patient floor today, greater than?50% of which was spent counseling/coordinating care. Reason for contiued inpatient stay Substantial Risk for: inability to function, rapid decompensation and med/psych decompensation
[2021-11-19 18:00] VITALS: BP 136/68; PULSE 74; RESP 18; TEMP 36.9; O2SAT 95
[2021-11-19 19:14] LABS: B Type Natriuretic Peptide 301 pg/mL (<100)
[2021-11-19] MEDS: Lithium Carbonate 300 MG TABLET 150 MG PO (20:11)
[2021-11-19] MEDS: OLANZapine 5 MG TABLET PO (20:12)
[2021-11-20] MEDS: Amoxicillin/Potassium Clav 500 MG TABLET PO (05:37)
[2021-11-20 06:00] VITALS: BP 134/75; PULSE 74; RESP 18; TEMP 35.9; O2SAT 99
[2021-11-20] MEDS: Lithium Carbonate 300 MG CAPSULE PO (09:32)
[2021-11-20] MEDS: Atorvastatin Calcium 40 MG TABLET PO (09:32)
[2021-11-20] MEDS: Thiamine HCL 100 MG TABLET PO (09:32)
[2021-11-20] MEDS: Aspirin 81 MG TAB.CHEW PO (09:32)
[2021-11-20] MEDS: Tamsulosin HCL 0.4 MG CAPSULE PO (09:32)
--- NOTE | 2021-11-20 12:09 | P.DS_ITS ---
DS: Providers Provider Date of Service: 11/20/21 Date of admission: 11/05/21 20:31 Date of discharge: 11/20/21 Primary care physician: Carlos Piña DO, MD Consults: 11/05/21 21:05 Consult to Hospitalist Routine Consulting Provider: Hospitalist Reason For Exam: New admit [place] [facility] 11/19/21 10:58 Consult to Hospitalist Routine Consulting Provider: Hospitalist Reason For Exam: R/O cellulitis 11/19/21 14:06 Consult to Nephrology Routine Consulting Provider: Raghu Wolf Reason for consultation: ckd/leg swellin Has provider been notified: No Attending physician on discharge: Hemal Aguilar DS: Diagnosis Discharge Diagnosis (1) Bipolar 1 disorder: (2) Dementia with behavioral disturbance: DS: Medications Discharge Medications Home Medications: Home Medications Medication Instructions Recorded Confirmed Flomax 0.4 mg PO DAILY 11/06/21 11/06/21 acetaminophen 650 mg PO NEEDED 11/06/21 11/06/21 aspirin 81 mg PO DAILY 11/06/21 11/06/21 calamine 1 applicator topical NEEDED 11/06/21 11/06/21 docusate sodium 1 tab PO BID PRN Constipation 11/06/21 11/06/21 lithium carbonate 150 mg capsule 150 mg PO BEDTIME 11/06/21 11/06/21 lithium carbonate 300 mg tablet 300 mg PO DAILY 11/06/21 11/06/21 multivitamin 1 tab PO DAILY 11/06/21 11/06/21 thiamine HCl (vitamin B1) 100 mg PO DAILY 11/06/21 11/06/21 Mental Status Exam Mental Status Exam Patient Appearance: Well Grooomed Patient Orientation: Person, Place and Situation Level of Consciousness: Awake Patient Behavior: Appropriate and Cooperative Affect Description: Calm Patient Cognition Impaired: Yes Ability to Follow Directions: Good Speech Pattern: Clear Hallucinations: None Delusions: Not Present Thought Process: Linear Thought Content: positive for [place] and positive for Circumstantial Judgement: Fair Data Data Completed and Pending Completed studies during hospitalization [Text1]: 11/19/21 11/19/21 11/19/21 07:56 07:56 12:53 WBC 5.6 RBC 3.55 L Hgb 9.7 L Hct 31.1 L MCV 87.6 MCH 27.3 MCHC 31.2 RDW 13.5 Plt Count 234 MPV 9.7 Immature Gran % (Auto) 0.5 H Neut % (Auto) 67.9 Lymph % (Auto) 14.7 L [place] % (Auto) 9.8 Eos % (Auto) 6.4 H Baso % (Auto) 0.7 Lymph # (Auto) 0.8 L [place] # (Auto) 0.6 Eos # (Auto) 0.4 Baso # (Auto) 0.0 Abs Immat Gran (auto) 0.03 Absolute Neuts (auto) 3.8 Absolute Nucleated RBC 0.000 Nucleated RBC % (auto) 0.0 Sodium 140 Potassium 4.4 Chloride 109 H Carbon Dioxide 22 Anion Gap 13 BUN 32 H Creatinine 1.90 H Estim Creat Clear Calc 34.2 Estimated GFR 35 Random Glucose 120 H Calcium 8.4 Total Bilirubin 0.4 Direct Bilirubin 0.2 AST 22 ALT 24 Alkaline Phosphatase 64 B-Natriuretic Peptide Total Protein 6.7 Albumin 3.9 [place] 0.52 L 11/19/21 18:48 WBC RBC Hgb Hct MCV MCH MCHC RDW Plt Count MPV Immature Gran % (Auto) Neut % (Auto) Lymph % (Auto) [place] % (Auto) Eos % (Auto) Baso % (Auto) Lymph # (Auto) [place] # (Auto) Eos # (Auto) Baso # (Auto) Abs Immat Gran (auto) Absolute Neuts (auto) Absolute Nucleated RBC Nucleated RBC % (auto) Sodium Potassium Chloride Carbon Dioxide Anion Gap BUN Creatinine Estim Creat Clear Calc Estimated GFR Random Glucose Calcium Total Bilirubin Direct Bilirubin AST ALT Alkaline Phosphatase B-Natriuretic Peptide 301 H Total Protein Albumin [place] [facility] Diagnostic Imaging Impressions Head CT 11/11/21 15:00 IMPRESSION: Suspected 4.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 No midline shift of structures. 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 Generalized parenchymal volume loss and mild chronic white matter microangiopathy. No acute intracranial hemorrhage. If there is concern for a focal acute ischemic process, a follow-up MRI of the brain could be considered for further evaluation. Venous Duplex 11/19/21 17:58 IMPRESSION: No DVT demonstrated in the bilateral lower extremity. Moderate bilateral calf edema. DS: Summary Hospital Course Hospital Course: The patient was admitted for manic symptoms and psychosisin the context of noncompliance with lithium. Please see the HPI on the admission note for further details. On admission, the patient was restarted on his regular lithium 150 mg p.o. q.a.m. and 300 p.o. q.h.s. and we added a low dose of olanzapine titrated up to 5 mg p.o. q.h.s. since the patient was psychotic. At the beginning, the patient was sexually inappropriate, disinhibited with poor sleep and florid manic symptoms with psychosis. The patient has been fully compliant with treatment and he is sporadically improved, his thought process cleared and his margarita resolved in less than 10 days. The patient carries a diagnosis of chronic kidney disease and even though that he was on a low dose of lithium he was on a nearly therapeutic dose with no evidence of side effects. Today's before of the discharge, we noticed a slight edema on lower legs that apparently has been chronic. We consulted with the hospitalist and they suggested a nephrology consult that it was been placed but unfortunately he could not answer before it. Even though, there were no safety concerns or medical conditions that prohibit his discharge. On discharge, we found out that the last time that the patient went to his primary care was 3 years ago and he did not have providers at that moment. Even though, we found out providers for him to be seen as soon as possible. Since there were no safety concerns, discharge planning was discussed. Time spent discussing smoking cessation with patient: 3 to 10 minutes Status at Discharge Cognitive/behavioral status at discharge: The patient had a [place] test and he scored low, compatible with mild dementia, even though the patient is able to do his own ADL less without any help Functional status at discharge: independent ambulation Overall status at discharge: patient is back to baseline Time Spent with Patient Time attestation: Total time spent providing and/or coordinating discharge services: Time spent: Less than 30 minutes Discharge Plan Discharge Patient Disposition: Home, Self-Care Discharge Diagnosis: bipolar disorder most recent episode manic Referrals: [facility] [Other] - 12/02/21 5:00 pm (Appointment scheduled for December 02 @ 5 PM with MALLIKA Dillon. TELEHEALTH VISIT) Dr. Carlos Caceres (PCP) [Other] - 11/30/21 3:00 pm (Appt scheduled for Tuesday, November 30, 2021 @ 3 PM via telehealth/phone. Once initial appt is kept Kareem can transfer to [place] office closer to his home. Fax discharge summary [phone]) Discharge Medications: New atorvastatin 40 mg Tablet 40 mg PO DAILY 30 Days Qty: 30 0RF tamsulosin 0.4 mg Capsule 0.4 mg PO DAILY 30 Days Qty: 30 0RF aspirin 81 mg Tablet,Chewable 81 mg PO DAILY 30 Days Qty: 30 0RF amoxicillin-pot clavulanate 500-125 mg Tablet 500 mg PO 0600,1800 10 Days Qty: 16 0RF trazodone 50 mg Tablet 50 mg PO BEDTIME PRN (Reason: Insomnia) 30 Days Qty: 30 0RF olanzapine 5 mg Tablet 5 mg PO BEDTIME 30 Days Qty: 30 0RF melatonin 3 mg Tablet 3 mg PO BEDTIME PRN (Reason: insomnia) 30 Days Qty: 30 0RF lithium carbonate 300 mg Capsule 300 mg PO DAILY 30 Days Qty: 30 0RF lithium carbonate 300 mg Tablet 150 mg PO BEDTIME 30 Days Qty: 15 0RF calamine-zinc oxide 8-8 % Lotion 1 appl topical QID PRN (Reason: poison kailee) Qty: 177 0RF Discontinued lithium carbonate 150 mg Capsule 150 mg PO BEDTIME lithium carbonate 300 mg Tablet 300 mg PO DAILY Flomax capsule 0.4 mg PO DAILY acetaminophen tablet 650 mg PO NEEDED aspirin tablet 81 mg PO DAILY calamine lotion 1 applicator topical NEEDED docusate sodium tablet 1 tab PO BID PRN (Reason: Constipation) multivitamin tablet 1 tab PO DAILY thiamine HCl (vitamin B1) tablet 100 mg PO DAILY Discharge Orders: Discharge Order (Routine); Ordered 11/20/21 Ordered By: Hemal Aguilar Diet: Advance to usual diet Activity on Discharge: As tolerated Stand Alone Forms: Patient Portal Discharge page Care Plan Goals: care plan goals achieved Health Concerns: continue outpatient providers in the community Plan of Treatment: continue medication management Assessment: elderly male with a long history of bipolar disorder who was admitted for psychosis and margarita in the context of noncompliance of lithium since he lost his previous prescriber. At this moment safe in the community
--- NOTE | 2021-11-20 17:38 | PC.NURSE ---
Pt walked out to front entrance with all belongings, picked up by yellow cab for transport home at 1730.
== END 2021-11-20 15:30 | disposition home or self-care (01) | DRG 885 ==
PROVIDERS: Internal Medicine; Psychiatry & Neurology Psychiatry; Registered Nurse; Admitting Provider Psychiatry & Neurology Psychiatry; PCP Internal Medicine; Visit Provider Psychiatry & Neurology Psychiatry
DX: F31.9 Bipolar disorder, unspecified (principal); F03.91 Unspecified dementia, unspecified severity, with behavioral disturbance; L23.7 Allergic contact dermatitis due to plants, except food; I12.9 Hypertensive chronic kidney disease with stage 1 through stage 4 chronic kidney disease, or unspecified chronic kidney disease; N18.9 Chronic kidney disease, unspecified; Z86.73 Personal history of transient ischemic attack (TIA), and cerebral infarction without residual deficits; Z79.82 Long term (current) use of aspirin; Z79.899 Other long term (current) drug therapy
CPT/HCPCS: 36415; 70450; 80048; 80061; 80076; 80178; 82607; 82746; 83036; 83735; 83880; 84439; 84443; 85025; 93970